=== PATIENT | male | born 1975 | race Caucasian/White ===

== ENCOUNTER → 2017-07-28 13:31 | Outpatient (CLI) | payer MEDICAID, SELFPAY ==
--- NOTE | 2017-07-28 14:00 | CT_ITS ---
STUDY: CT CHEST WITHOUT CONTRAST REASON FOR EXAM: Male, 41 years old. Pleural effusions. Shortness of breath for 6 months. Smoking history. RADIATION DOSAGE (If Supplied By Facility): CTDIvol = ( 16.99 ) mGy, DLP = ( 628.32 ) mGycm TECHNIQUE: Transaxial imaging was performed without the administration of intravenous contrast material. Multiplanar coronal and sagittal images were reformatted. Individualized dose optimization techniques were used for this CT. COMPARISON: Chest, July 18, 2017. FINDINGS: The lungs are normal. There is minimal linear scarring in the right lateral costophrenic phrenic angle. There is mild thickening of the adjacent pleura. There is no evidence of pleural effusions. Normal heart and pericardium. There are calcifications of the coronary arteries. Normal mediastinum. Normal hilar regions. Normal unenhanced pulmonary arteries. Normal aorta arch and descending thoracic aorta. Normal osseous structures. There is no demonstrated abnormality of the visualized upper abdomen. CT/Chest without Contrast IMPRESSION: Minimal thickening of the right pleura with scarring in the lateral costophrenic angle. The study is otherwise unremarkable. Electronically Signed: Ankur Barton DO at 14:21 EST Tel [phone], Service support ,
== END ==
PROVIDERS: Visit Provider Nurse Practitioner Acute Care
DX: J90 Pleural effusion, not elsewhere classified (principal)
CPT/HCPCS: 71250

== ENCOUNTER 2018-05-02 13:15 | Inpatient (IN) | payer MEDICAID, SELFPAY ==
[2018-05-02 13:35] VITALS: BMI 29.2
[2018-05-02] MEDS: hydrOXYzine PAM 25 MG Capsule 50 MG PO ×2 (13:51→21:41)
[2018-05-02] MEDS: cloNIDine HCl 0.1 MG Tablet PO ×3 (13:51→21:42)
[2018-05-02] MEDS: Methocarbamol 750 MG Tablet PO ×2 (13:51→21:42)
[2018-05-02] MEDS: Buprenorphine HCl 2 MG TAB.SUBL SL ×2 (13:52→21:41)
[2018-05-02 14:00] VITALS: BP 176/87; PULSE 81; RESP 18; TEMP 36.8; O2SAT 98
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
[2018-05-02 18:00] VITALS: BP 130/97; PULSE 78; RESP 18; TEMP 36.6
[2018-05-02] MEDS: Pramipexole Di-HCl 0.25 MG Tablet PO (18:02)
[2018-05-02] MEDS: chlordiazePOXIDE 25 MG Capsule 50 MG PO (18:47)
[2018-05-02 20:29] LABS: Amphetamine Urine VISTA NEGATIVE (<1000 ng/mL); Barbiturate Urine VISTA NEGATIVE (< 200 ng/mL); Benzodiazepine Urine VISTA NEGATIVE (< 200 ng/mL); Cocaine Urine VISTA NEGATIVE (< 300 ng/mL); Ecstacy Urine VISTA NEGATIVE (< 500 ng/mL); Methadone Urine VISTA NEGATIVE (< 300 ng/mL); PCP Urine VISTA NEGATIVE (< 25 ng/mL); THC Urine VISTA NEGATIVE (< 50 ng/mL); Vista UDS pH Range 6
[2018-05-02 21:35] VITALS: BP 115/85; PULSE 88; RESP 18; TEMP 36.4
[2018-05-02] MEDS: traZODone 50 MG Tablet PO (21:41)
[2018-05-02] MEDS: Dicyclomine 10 MG Capsule 20 MG PO (21:41)
[2018-05-03] VITALS (7 sets, daily range): BP systolic 94–120; BP diastolic 50–83; PULSE 57–91; RESP 16–18; TEMP 36.2–36.7; O2SAT 97–98
[2018-05-03] MEDS: MELATONIN 10 MG TABLET 5 MG PO (00:26)
[2018-05-03] MEDS: hydrOXYzine PAM 25 MG Capsule 50 MG PO (05:51)
[2018-05-03] MEDS: Methocarbamol 750 MG Tablet PO ×2 (05:51→21:22)
[2018-05-03] MEDS: Buprenorphine HCl 2 MG TAB.SUBL SL ×3 (05:51→21:22)
[2018-05-03 06:57] LABS: Absolute Neutrophil Count 2.6 X10^3/uL (2.0-7.7); Basophil# 0.02 X10^3/uL; Basophil% 0.3 % (0-1); Eosinophils% 1.7 % (0-5); Hematocrit 46.1 % (40-54); Hemoglobin 15.6 g/dl (13.0-16.5); Lymphocyte % 46.2 % (19-41); Mean Corp Hgb Conc 33.8 g/gl (32-36); Mean Corpuscular Hgb 29.2 pg (27.0-32.0); Mean Corpuscular Volume 86.3 fL (80-94); Mean Platelet Vol. 8.8 fl (6.2-12.0); Monocyte# 0.39 X10^3/uL; Monocyte% 6.7 % (0-10); Neutrophil # 2.61 X10^3/uL (2.7-7.7); Neutrophil % 44.8 % (47-70); Platelet Count 353 K/mm3 (150-450); RBC Distribution Width CV 12.8 % (11.6-14.6); RBC Distribution Width SD 39.8 fl (35.1-43.9); Red Blood Count 5.34 M/mm3 (4.6-6.2); White Blood Count 5.8 K/mm3 (4.4-11.0)
[2018-05-03 07:02] LABS: Anion Gap 9 (5-15); BUN 14 mg/dL (7-18); BUN/Creat Ratio 13.2 RATIO (10-20); Calcium,Total 9.4 mg/dL (8.5-10.1); Chloride 102 mmol/L (98-107); Creatinine, Serum 1.06 mg/dL (0.70-1.30); EST Glomerular Filtration Rate 81 mL/min (>60); Est Glom Filt Rate - Afr Amer 97 mL/min (>60); Estimated Creatinine Clearance 94.72 ml/min; Glucose 103 mg/dL (74-106); Potassium 4.2 mmol/L (3.5-5.1); Sodium Level 137 mmol/L (136-145)
[2018-05-03 07:12] LABS: POSITIVE COUNT NO; POSITIVE DIFFERENTIAL NO; POSITIVE MORPHOLOGY NO
--- NOTE | 2018-05-03 08:59 | PN_ITS ---
Patient Problems: Active and Suspected Problems (Last Reviewed 02/21/18 @ 08:48 by Misa Wilkins) Acute opioid withdrawal (Acute) Subjective: Chief complaint: Follow-up after admission for acute opioid withdrawal. Patient seen and examined. No acute events overnight. This morning, he complains of intermittent abdominal cramps and low back pain. He reported headache. He does have history of chronic back pain due to back trauma. His vital signs are stable. - Physical Exam General: Alert, Oriented x3, Cooperative, No apparent distress HEENT: Atraumatic, PERRLA, EOMI, Normocephalic Oral: Moist Mucosa, No Gingival or Mucosal Lesions/ Ulcerations Neck: Supple, No JVD, Trachea Midline, Thyroid Normal Size and Texture Lungs: Clear to auscultation, No rhonchi, No wheeze, No rales, Diminished Cardiovascular: Regular rate, Regular Rhythm, Normal S1, Normal S2, PMI Normal Abdomen: Bowel Sounds Present, Soft, Non Tender, Non-Distended, No Hepato- splenomegaly Extremities: No clubbing, No cyanosis, No edema Skin: No rashes, No breakdown Lymphatic: No Cervical, Supraclavicular, or Inguinal Adenopathy Neurological: Cranial nerves II-XII grossly intact, Motor Exam 5/5 strength throughout Psych/Mental Status: Normal Affect, Appropriate, Alert and oriented to time, place, person, mood and affect Vital Signs Temp Pulse Resp BP Pulse Ox 97.2 F L 57 L 16 94/50 L 98 05/03/18 05:49 05/03/18 05:49 05/03/18 05:49 05/03/18 05:49 05/02/18 14:00 Weight: 209 lb 7.026 oz Body Mass Index (BMI) 29.2 Intake and Output for Last 24 Hours 05/01/18 05/02/18 05/03/18 23:59 23:59 23:59 Intake Total 1350 / 1350 500 / 500 Balance 1350 / 1350 500 / 500 Laboratory Tests Past 24 Hrs 05/02/18 05/03/18 05/03/18 19:00 06:30 06:30 WBC 5.8 RBC 5.34 Hgb 15.6 Hct 46.1 MCV 86.3 MCH 29.2 MCHC 33.8 RDW 12.8 RDW Differential 39.8 Plt Count 353 MPV 8.8 Immature Gran % (Auto) 0.300 Neut % (Auto) 44.8 L Lymph % (Auto) 46.2 H [place] % (Auto) 6.7 Eos % (Auto) 1.7 Baso % (Auto) 0.3 Absolute Neuts (auto) 2.6 Absolute Lymphs (auto) 2.70 Total Counted Not Reportable Sodium 137 Potassium 4.2 Chloride 102 Carbon Dioxide 26.0 Anion Gap 9 BUN 14 Creatinine 1.06 Estim Creat Clear Calc 94.72 Est GFR (MDRD) Af Amer 97 Est GFR (MDRD) Non-Af 81 BUN/Creatinine Ratio 13.2 Glucose 103 Calcium 9.4 Urine Opiates Screen POSITIVE H Urine Methadone Screen NEGATIVE Ur Barbiturates Screen NEGATIVE Ur Phencyclidine Scrn NEGATIVE Ur Amphetamines Screen NEGATIVE U Methamphetamin-MDMA NEGATIVE U Benzodiazepines Scrn NEGATIVE Urine Cocaine Screen NEGATIVE U Cannabinoids Screen NEGATIVE Ur Drug Screen Comment Medical Necessity - Tobacco Use Smoking Status: Current every day smoker Tobacco Use: Cigarettes Assessment/Plan All Active Problems (Last Reviewed 02/21/18 @ 08:48 by Misa Wilkins) Acute opioid withdrawal (Acute) This is a 42 years old male patient presented to the [facility] office requesting admission for medical stabilization due to acute heroin withdrawal. #1 acute opioid withdrawal: Patient has been using heroin, last use was yesterday. He is on [facility] protocol with tapering course of Subutex, as needed Librium, Catapres, Bentyl, Vistaril, methocarbamol, Mirapex and trazodone. He is still symptomatic, minimal improvement. Vital signs are stable. Routine blood work was unremarkable. Urine drug screen was positive for opioids. Plan to continue same treatment. #2 hypertension: Blood pressure stable, continue home medication when home medication list updated. #3 COPD: Clinically stable, pulse ox is maintained on room air. Plan for albuterol as needed. #4 chronic back pain: Start Tylenol extra strength every 8 hours as needed. #5 tobacco abuse: He is on NicoDerm patch. #6 DVT prophylaxis: Low risk patient, no prophylaxis indicated, ambulate. This note was generated with [employer] software. It may contain incorrect words, spelling, and punctuation that were not noted in checking the note before signing. Code Visit Inpatient E&M: 67716 Subs Hosp L2
[2018-05-03] MEDS: Acetaminophen 500 MG Tablet 1000 MG PO (09:44)
[2018-05-03] MEDS: Dicyclomine 10 MG Capsule 20 MG PO ×2 (09:44→21:22)
[2018-05-03] MEDS: tiZANidine HCl 2 MG Tablet 4 MG PO (15:25)
--- NOTE | 2018-05-03 15:33 | CHAPLAIN ---
Type of Pastoral Visit _x__ Initial Visit ___ Follow-up Visit ___ On-call Visit ___ General Patient Visit ___ Spiritual Assessment ___ Family Conference ___ Bereavement ___ Rapid Response ___ Code Blue ___ Other (describe below) Pastoral Care Referral From _x__ Patient ___ Family ___ Nurse ___ Physician ___ Principal Librarian ___ Lieutenant Fire Fighter ___ Other (describe below) Sacrament/Intervention _x__ Active listening ___ Anointing ___ Restorationist ___ Bereavement ___ Communion _x__ Sadia exploration ___ _x__ Life review _x__ Prayer ___ Reconciliation ___ Sacrament of Sick _x__ Supportive presence ___ Wedding ___ Other (describe below) Pastoral Comments patient offered spiritual and emotional support and 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
[2018-05-03] MEDS: cloNIDine HCl 0.1 MG Tablet PO (21:22)
[2018-05-03] MEDS: Pramipexole Di-HCl 0.25 MG Tablet PO (21:22)
[2018-05-03] MEDS: QUEtiapine 25 MG Tablet 50 MG PO (21:23)
[2018-05-03] MEDS: traZODone 50 MG Tablet PO (21:29)
[2018-05-04 06:17] VITALS: BP 118/78; PULSE 88; RESP 18; TEMP 36.8
[2018-05-04] MEDS: cloNIDine HCl 0.1 MG Tablet PO (06:19)
[2018-05-04] MEDS: Buprenorphine HCl 2 MG TAB.SUBL SL ×2 (06:19→18:00)
[2018-05-04] MEDS: hydrOXYzine PAM 25 MG Capsule 50 MG PO ×2 (06:19→14:36)
[2018-05-04] MEDS: Methocarbamol 750 MG Tablet PO ×3 (06:19→21:46)
[2018-05-04] MEDS: Dicyclomine 10 MG Capsule 20 MG PO ×3 (06:19→21:47)
--- NOTE | 2018-05-04 08:41 | PCM.PROGNOTE ---
Patient Problems: Active and Suspected Problems (Last Updated 05/03/18 @ 09:00 by Devyn Hamm MD) Acute opioid withdrawal (Acute) Subjective: Chief complaint: Follow-up after admission for acute opioid withdrawal for medical stabilization. Patient seen and examined. No acute events overnight. Today, he reported mild improvement of his symptoms, having less abdominal cramps. Denied nausea vomiting. He was able to sleep last night. His vital signs are stable. - Physical Exam General: Alert, Oriented x3, Cooperative, No apparent distress HEENT: Atraumatic, PERRLA, EOMI, Normocephalic Oral: Moist Mucosa, No Gingival or Mucosal Lesions/ Ulcerations Neck: Supple, No JVD, Negative Carotid Bruits, Trachea Midline, Thyroid Normal Size and Texture Lungs: Clear to auscultation, Normal air movement, No rhonchi, No wheeze, No rales Cardiovascular: Regular rate, Regular Rhythm, Normal S1, Normal S2, PMI Normal Abdomen: Bowel Sounds Present, Soft, Non Tender, Non-Distended, No Hepato-splenomegaly Extremities: No clubbing, No cyanosis, No edema Skin: No rashes, No breakdown Lymphatic: No Cervical, Supraclavicular, or Inguinal Adenopathy Neurological: Cranial nerves II-XII grossly intact, Neuro grossly intact Psych/Mental Status: Normal Affect, Appropriate, Alert and oriented to time, place, person, mood and affect Vital Signs Temp Pulse Resp BP Pulse Ox 98.3 F 88 18 118/78 98 05/04/18 06:17 05/04/18 06:17 05/04/18 06:17 05/04/18 06:17 05/03/18 21:08 Oxygen Delivery Method Room Air Weight: 209 lb 7.026 oz Body Mass Index (BMI) 29.2 Intake and Output for Last 24 Hours 05/02/18 05/03/18 05/04/18 23:59 23:59 23:59 Intake Total 1350 / 1350 860 / 860 360 / 360 Balance 1350 / 1350 860 / 860 360 / 360 Medical Necessity - Tobacco Use Smoking Status: Current every day smoker Tobacco Use: Cigarettes Assessment/Plan All Active Problems (Last Updated 05/03/18 @ 09:00 by Devyn Hamm MD) Acute opioid withdrawal (Acute) This is a 42 years old male patient presented to the [facility] office requesting admission for medical stabilization due to acute heroin withdrawal. #1 acute opioid withdrawal: Remained on [facility] protocol with tapering course of Subutex, as needed Librium, Catapres, Bentyl, Vistaril, methocarbamol, Mirapex and trazodone. He reported mild improvement of his symptoms. Vital signs are stable. Routine blood work was unremarkable. Urine drug screen was positive for opioids. Plan to continue same treatment. #2 hypertension: Blood pressure stable, continue Norvasc and lisinopril. #3 COPD: Clinically stable, pulse ox is maintained on room air. Continue albuterol as needed. #4 chronic back pain: Stable, continue Tylenol extra strength every 8 hours as needed. #5 tobacco abuse: He is on NicoDerm patch. #6 DVT prophylaxis: Low risk patient, no prophylaxis indicated, ambulate. This note was generated with [employer] dictation software. It may contain incorrect words, spelling, and punctuation that were not noted in checking the note before signing. Code Visit Inpatient E&M: 26365 Subs Hosp L2
[2018-05-04 10:39] VITALS: BP 93/60; PULSE 61; RESP 16; TEMP 36.7
[2018-05-04] MEDS: Pramipexole Di-HCl 0.25 MG Tablet PO (10:50)
[2018-05-04] MEDS: chlordiazePOXIDE 25 MG Capsule 50 MG PO ×2 (10:50→18:09)
[2018-05-04] MEDS: Venlafaxine XR 75 MG Capsule PO (10:50)
[2018-05-04] MEDS: tiZANidine HCl 2 MG Tablet 4 MG PO (10:51)
[2018-05-04 14:30] VITALS: BP 93/59; PULSE 57; RESP 16; TEMP 36.6
[2018-05-04] MEDS: Acetaminophen 500 MG Tablet 1000 MG PO (14:36)
[2018-05-04 18:11] VITALS: BP 104/76; PULSE 62; RESP 16; TEMP 36.7
[2018-05-04 21:33] VITALS: BP 137/77; PULSE 70; RESP 18; TEMP 36.4
[2018-05-04] MEDS: QUEtiapine 25 MG Tablet 50 MG PO (21:43)
[2018-05-04] MEDS: traZODone 50 MG Tablet PO (21:43)
[2018-05-05] MEDS: Buprenorphine HCl 2 MG TAB.SUBL SL (05:27)
[2018-05-05] MEDS: hydrOXYzine PAM 25 MG Capsule 50 MG PO (05:27)
[2018-05-05 05:34] VITALS: BP 131/77; PULSE 77; RESP 18; TEMP 36.6
--- NOTE | 2018-05-05 05:36 | NURSING ---
GIRLFRIEND SLEEPING IN BED WITH PT.
[2018-05-05 08:47] VITALS: BP 114/82; PULSE 64; RESP 18; TEMP 36.7; O2SAT 95
--- NOTE | 2018-05-05 08:47 | DCINST_ITS ---
- Discharge Diagnoses Current Active Problems: Current Active and Chronic Problems (Last Updated 05/03/18 @ 09:00 by Devyn Hamm MD) Acute opioid withdrawal (Acute) You will use the following diet at home:: Cardiac Your food should be the consistency of: Regular Discharge Activity: Return to Normal Activity Weight Bearing Status: Full weight bearing Call your doctor if you observe: Fever of 101 or Higher, Shortness of breath, Dizziness, Fainting spells, Chest pain, Increased palpitations (irregular heartbeat), Uncontrolled pain Allergies/Adverse Reactions: Allergies tramadol Allergy (Intermediate, Verified 08/24/17 09:29) Unknown acetaminophen [From Vicodin] Allergy (Verified 08/24/17 09:29) Swelling hydrocodone [From Vicodin] Allergy (Verified 08/24/17 09:29) Swelling Medications to take at Discharge naltrexone ER 380 mg intramuscular suspension,extended release 380 mg IM QMONTH 07/08/17 albuterol sulfate HFA 90 mcg/actuation aerosol inhaler 2 puff INHALATION Q4H PRN #1 device 07/13/17 amoxicillin 875 mg-potassium clavulanate 125 mg tablet 1 tab PO BID #20 tab 08/24/17 Meloxicam 7.5 mg PO QDAY 05/03/18 Nicotine [Nicoderm Cq] 21 mg TRANSDERM. DAILY 05/03/18 Tizanidine HCl [Zanaflex] 4 mg PO TID PRN PRN 05/03/18 Amlodipine Besylate [Norvasc] 5 mg PO QDAY #30 tablet 05/05/18 Lisinopril 20 mg PO DAILY #30 tablet 05/05/18 Quetiapine Fumarate [Seroquel] 50 mg PO QHS #30 tablet 05/05/18 Venlafaxine XR [Effexor Xr] 75 mg PO DAILY #30 capsule 05/05/18 The following prescriptions were given: Amlodipine Besylate [Norvasc] 5 mg PO QDAY #30 tablet Lisinopril 20 mg PO DAILY #30 tablet Quetiapine Fumarate [Seroquel] 50 mg PO QHS #30 tablet Venlafaxine XR [Effexor Xr] 75 mg PO DAILY #30 capsule Primary Care Physician: Care Physician,No Primary [Primary Care Provider] - Please follow up with your Primary Care Physician in: 1-2 weeks. Test Results: Test results from this visit will be discussed in further detail at your follow- up appointment, if applicable.
[2018-05-05] MEDS: amLODIPine 5 MG Tablet PO (09:34)
[2018-05-05] MEDS: Lisinopril 20 MG Tablet PO (09:34)
[2018-05-05] MEDS: Venlafaxine XR 75 MG Capsule PO (09:34)
--- NOTE | 2018-05-05 13:06 | PCM.DC.SUM ---
Discharge Date and Diagnosis - Problem List Patient Problems: Active and Suspected Problems (Last Updated 05/03/18 @ 09:00 by Devyn Hamm MD) Acute opioid withdrawal (Acute) Date of Admission: 05/02/18 Date of Discharge: 05/05/18 - Primary Discharge Diagnosis Active and Suspected Problems (Last Updated 05/03/18 @ 09:00 by Devyn Hamm MD) Acute opioid withdrawal admitted for medical stabilization (Acute) - Secondary Discharge Diagnosis Chronic Problems (Last Updated 05/03/18 @ 09:00 by Devyn Hamm MD) Tobacco dependency (Chronic) Restrictive airway disease (Chronic) Chronic bronchitis (Chronic) HTN (hypertension) (Chronic) Back pain (Chronic) Tobacco use (Chronic) Polysubstance abuse (Chronic) Hospital Course and Treatment Operations: None Procedures: None Summary of Care Provided: The patient is a 42 year old M presented to the [facility] office requesting admission for medical stabilization due to acute opioid withdrawal. Patient has been using IV heroin as well as snorting heroin after he relapsed at 7 months ago. He was clean for about 18 months. His main presenting symptoms are restlessness, and anxiety, abdominal cramps and mild diarrhea. He was admitted to the floor, started on [facility] protocol with tapering course of Subutex, as needed Librium, Catapres, Bentyl, Vistaril, methocarbamol, Mirapex and trazodone. His vital signs were stable throughout admission. His routine blood work was unremarkable. His urine drug screen was positive for opioids. With the above-mentioned treatment, patient symptoms improved. He does have a history of hypertension COPD and he was continued on his home medications and his blood pressure has been stable throughout admission. Patient discharged home in a stable medical condition, prescription given for Norvasc, lisinopril, Seroquel and Effexor, recommended follow-up with PCP in 1 week, follow-up with [facility] as directed. Patient Problems: Active and Suspected Problems (Last Updated 05/03/18 @ 09:00 by Devyn Hamm MD) Acute opioid withdrawal (Acute) - Physical Exam General: Alert, Oriented x3, Cooperative, No apparent distress HEENT: PERRLA, EOMI, Normocephalic Oral: Moist Mucosa, No Gingival or Mucosal Lesions/ Ulcerations Neck: Supple, No JVD, Negative Carotid Bruits, Thyroid Normal Size and Texture Lungs: Clear to auscultation, Normal air movement, No rhonchi, No wheeze, No rales Cardiovascular: Regular rate, Regular Rhythm, Normal S1, Normal S2 Abdomen: Bowel Sounds Present, Soft, Non Tender, Non-Distended, No Hepato-splenomegaly Extremities: No clubbing, No cyanosis, No edema Skin: No rashes, No breakdown Lymphatic: No Cervical, Supraclavicular, or Inguinal Adenopathy Neurological: Cranial nerves II-XII grossly intact, Motor Exam 5/5 strength throughout Psych/Mental Status: Normal Affect, Appropriate Vital Signs Temp Pulse Resp BP Pulse Ox 98.0 F 64 18 114/82 H 95 05/05/18 08:47 05/05/18 08:47 05/05/18 08:47 05/05/18 08:47 05/05/18 08:47 Oxygen Delivery Method Room Air Weight: 209 lb 7.026 oz Body Mass Index (BMI) 29.2 Intake and Output for Last 24 Hours 05/03/18 05/04/18 05/05/18 23:59 23:59 23:59 Intake Total 860 / 860 360 / 360 Balance 860 / 860 360 / 360 Discharge Activity: Return to Normal Activity Weight Bearing Status: Full weight bearing Call your doctor if you observe: Fever of 101 or Higher, Shortness of breath, Dizziness, Fainting spells, Chest pain, Increased palpitations (irregular heartbeat), Uncontrolled pain Home Medications: Medications to take at Discharge naltrexone ER 380 mg intramuscular suspension,extended release 380 mg IM QMONTH 07/08/17 albuterol sulfate HFA 90 mcg/actuation aerosol inhaler 2 puff INHALATION Q4H PRN #1 device 07/13/17 amoxicillin 875 mg-potassium clavulanate 125 mg tablet 1 tab PO BID #20 tab 08/24/17 Meloxicam 7.5 mg PO QDAY 05/03/18 Nicotine [Nicoderm Cq] 21 mg TRANSDERM. DAILY 05/03/18 Tizanidine HCl [Zanaflex] 4 mg PO TID PRN PRN 05/03/18 Amlodipine Besylate [Norvasc] 5 mg PO QDAY #30 tablet 05/05/18 Lisinopril 20 mg PO DAILY #30 tablet 05/05/18 Quetiapine Fumarate [Seroquel] 50 mg PO QHS #30 tablet 05/05/18 Venlafaxine XR [Effexor Xr] 75 mg PO DAILY #30 capsule 05/05/18 Following Prescrptions Were Given to Patient: Amlodipine Besylate [Norvasc] 5 mg PO QDAY #30 tablet Lisinopril 20 mg PO DAILY #30 tablet Quetiapine Fumarate [Seroquel] 50 mg PO QHS #30 tablet Venlafaxine XR [Effexor Xr] 75 mg PO DAILY #30 capsule Primary Care Physician: Care Physician,No Primary [Primary Care Provider] - Please follow up with your Primary Care Physician in: 1-2 weeks. Medical Necessity - Tobacco Use Smoking Status: Current every day smoker Tobacco Use: Cigarettes Meaningful Use Info Meaningful Use Diagnoses (Choose all that apply): None applicable Code Visit Inpatient E&M: 35495 Disch Hosp
== END 2018-05-05 10:07 | disposition home or self-care (01) | DRG 773 ==
LOC: MS2 05-03 07:09 → MS3 05-04 13:59
PROVIDERS: Admitting Provider Family Medicine; Referring Provider Family Medicine; Visit Provider Hospitalist
DX: F11.23 Opioid dependence with withdrawal (principal); J44.9 Chronic obstructive pulmonary disease, unspecified; F17.210 Nicotine dependence, cigarettes, uncomplicated; I10 Essential (primary) hypertension; G89.29 Other chronic pain; M54.9 Dorsalgia, unspecified
CPT/HCPCS: 36415; 80048; 80307; 85025; 97802

== ENCOUNTER 2018-07-13 12:01 | Inpatient (IN) | payer MEDICAID, SELFPAY ==
[2018-05-02 13:35] VITALS: BMI 29.2
[2018-07-13 12:19] VITALS: BMI 28.8
[2018-07-13 12:20] VITALS: BMI 28.9
[2018-07-13 12:23] VITALS: BP 157/97; PULSE 60; RESP 18; TEMP 36.4; O2SAT 99
[2018-07-13] MEDS: cloNIDine HCl 0.1 MG Tablet PO ×2 (12:47→17:56)
[2018-07-13] MEDS: Dicyclomine 10 MG Capsule 20 MG PO (12:47)
[2018-07-13] MEDS: hydrOXYzine PAM 25 MG Capsule 50 MG PO (12:48)
--- NOTE | 2018-07-13 13:16 | PCM.HP.STD ---
Problem List (1) Acute opioid withdrawal Status: Acute (2) Tobacco dependency Status: Chronic (3) HTN (hypertension) Status: Chronic Qualifiers: (4) Back pain Status: Chronic Qualifiers: (5) Polysubstance abuse Status: Chronic History of Present Illness Date of Admission: 07/13/18 Chief Complaint: Acute opioid withdrawal. The patient is a 42 year old M with past medical history as mentioned above presented to the [facility] office requesting admission for medical stabilization due to acute opiate withdrawal. Patient was admitted at the end of April, for acute opiate withdrawal, was treated and was discharged and according to him, he was clean for about a month. He started back snorting heroin since beginning of June, every day and last use was 2 days ago. He stopped snorting heroin this time aiming to quit. His symptoms are restlessness, anxiety, cold skin, runny nose and abdominal cramps. He denied use of any IV drugs. He had a history of hypertension and he has been on lisinopril and Norvasc and his blood pressure has been stable. He had a history of COPD and he has been only on albuterol as needed which seems to be effective. He has a history of polysubstance abuse with recent admission for acute opioid withdrawal on April, but he relapsed 1 month later. At this time, his vital signs are stable. His routine blood work from the last admission on May 03, 2018 and he reviewed and was unremarkable. There is no indication to repeat routine blood work. Past Medical History Past Medical History (Chronic Problems): Chronic Problems (Last Updated 05/03/18 @ 09:00 by Devyn Hamm MD) Tobacco dependency (Chronic) Restrictive airway disease (Chronic) Chronic bronchitis (Chronic) HTN (hypertension) (Chronic) Back pain (Chronic) Tobacco use (Chronic) Polysubstance abuse (Chronic) Medical History: Medical History (Last Updated 05/03/18 @ 09:00 by Devyn Hamm MD) Tobacco dependency (Chronic) F17.200 Restrictive airway disease (Chronic) J98.4 Chronic bronchitis (Chronic) J42 HTN (hypertension) (Chronic) I10 Back pain (Chronic) M54.9 Tobacco use (Chronic) Z72.0 Polysubstance abuse (Chronic) F19.10 Allergies tramadol Allergy (Intermediate, Verified 08/24/17 09:29) Unknown acetaminophen [From Vicodin] Allergy (Verified 08/24/17 09:29) Swelling hydrocodone [From Vicodin] Allergy (Verified 08/24/17 09:29) Swelling Home Medications: Ambulatory Orders Medication Instructions Recorded albuterol sulfate HFA 90 2 puff INHALATION Q4H PRN #1 device 07/13/17 mcg/actuation aerosol inhaler Amlodipine Besylate [Norvasc] 5 mg PO QDAY #30 tablet 05/05/18 Lisinopril 20 mg PO DAILY #30 tablet 05/05/18 Quetiapine Fumarate [Seroquel] 50 mg PO QHS #30 tablet 05/05/18 Surgical History: - - Bowel resecton s/p trauma to abd. Psychiatric History: No pertinent psych hx Lives: With Family Smoking Status: Current every day smoker Tobacco Use: Cigarettes Alcohol: None Drugs: Heroin - *Family History Maternal Family History: Family History (Last Reviewed 02/21/18 @ 08:48 by Misa Wilkins) Mother Hypertension Diabetes COPD (chronic obstructive pulmonary disease) Aunt Cancer History Items: Diabetes, Heart Disease Paternal Family History: Family History (Last Reviewed 02/21/18 @ 08:48 by Misa Wilkins) Mother Hypertension Diabetes COPD (chronic obstructive pulmonary disease) Aunt Cancer History Items: Diabetes, Heart Disease Review of Systems Constitutional: Reports: Anorexia, Malaise. Denies: Chills, Fever, Weakness Eyes: Denies: Blurred vision, Double vision, Drainage, Redness HEENT: Denies: Difficulty Hearing, Ear Pain, Eye Pain, Nasal Congestion, Sore Throat Cardiovascular: Denies: Chest Pain, Chest Pressure, Edema, Heaviness, Palpitations, Syncope Respiratory: Denies: Cough, Pleuritic Pain, Shortness of Breath, Sputum production, Wheezing Gastrointestinal: Reports: Nausea, - - Abdominal cramps.. Denies: Abdominal Pain, Constipation, Diarrhea, Vomiting Genitourinary: Denies: Dysuria, Frequency, Hematuria Musculoskeletal: Denies: Arm Pain, Back Pain, Foot Pain Skin: Denies: Dryness, Rash Neurological: Denies: Balance problems, Double vision, Slurred speech, Confusion, Headaches, Incoordination, Numbness Psychiatric: Denies: Anxiety, Depression Endocrine: Denies: Change in Body Habitus, Polydipsia VTE Information - Inpt Only VTE Present on Admission: No VTE Mechan Device Prophylaxis: None VTE Pharm Prophylaxis ordered?: No - Physical Exam General: Alert, Oriented x3, Cooperative, No apparent distress HEENT: Atraumatic, PERRLA, EOMI, Normocephalic Oral: Moist Mucosa, No Gingival or Mucosal Lesions/ Ulcerations Neck: Supple, No JVD, Negative Carotid Bruits, Trachea Midline, Thyroid Normal Size and Texture Lungs: Clear to auscultation, Normal air movement, No rhonchi, No wheeze, No rales Cardiovascular: Regular rate, Regular Rhythm, Normal S1, Normal S2, No murmurs Abdomen: Bowel Sounds Present, Soft, Non Tender, Non-Distended, No Hepato-splenomegaly Extremities: No clubbing, No cyanosis, No edema Skin: No rashes, No breakdown Lymphatic: No Cervical, Supraclavicular, or Inguinal Adenopathy Neurological: Cranial nerves II-XII grossly intact, Motor Exam 5/5 strength throughout Psych/Mental Status: Normal Affect, Appropriate, Alert and oriented to time, place, person, mood and affect Vital Signs Temp Pulse Resp BP Pulse Ox 97.6 F L 60 18 157/97 H 99 07/13/18 12:23 07/13/18 12:23 07/13/18 12:23 07/13/18 12:23 07/13/18 12:23 Oxygen Delivery Method Room Air Weight: 206 lb 14.4 oz Body Mass Index (BMI) 28.8 Laboratory Tests Past 24 Hrs 07/13/18 12:35 Ethyl Alcohol Pending Assessment/Plan All Active Problems (Last Updated 05/03/18 @ 09:00 by Devyn Hamm MD) Acute opioid withdrawal (Acute) This is a 42 years old male patient presented to the [facility] office requesting admission for medical stabilization due to acute heroin withdrawal. #1 acute opioid withdrawal: Patient was admitted on April, for the same problem, treated and was discharged but he relapsed 1 month later. He has been snorting heroin since beginning of June, last use was 2 days ago. His vital signs are stable. Plan: Admit to [facility] floor, blood alcohol level, urine drug screen, start [facility] protocol with tapering course of Subutex, as needed Librium, Catapres, Bentyl, Vistaril, methocarbamol, Mirapex and trazodone. #2 hypertension: Blood pressure stable, continue home lisinopril and Norvasc. #3 COPD: Clinically stable, pulse ox is maintained on room air. Plan for albuterol as needed. #4 chronic back pain: Tylenol extra strength every 8 hours as needed. #5 tobacco abuse: Start NicoDerm patch. #6 DVT prophylaxis: Low risk patient, no prophylaxis indicated, ambulate. This note was generated with [employer] dictation software. It may contain incorrect words, spelling, and punctuation that were not noted in checking the note before signing. Code Visit Inpatient E&M: 51998 Init Hosp L2
--- NOTE | 2018-07-13 13:20 | HP.PCM_ITS ---
Problem List (1) Acute opioid withdrawal Status: Acute (2) Tobacco dependency Status: Chronic (3) HTN (hypertension) Status: Chronic Qualifiers: (4) Back pain Status: Chronic Qualifiers: (5) Polysubstance abuse Status: Chronic History of Present Illness Date of Admission: 07/13/18 Chief Complaint: Acute opioid withdrawal. The patient is a 42 year old M with past medical history as mentioned above presented to the [facility] office requesting admission for medical stabilization due to acute opiate withdrawal. Patient was admitted at the end of April, for acute opiate withdrawal, was treated and was discharged and according to him, he was clean for about a month. He started back snorting heroin since beginning of June, every day and last use was 2 days ago. He stopped snorting heroin this time aiming to quit. His symptoms are rest lessness, anxiety, cold skin, runny nose and abdominal cramps. He denied use of any IV drugs. He had a history of hypertension and he has been on lisinopril and Norvasc and his blood pressure has been stable. He had a history of COPD and he has been only on albuterol as needed which seems to be effective. He has a history of polysubstance abuse with recent admission for acute opioid withdrawal on April, but he relapsed 1 month later. At this time, his vital signs are stable. His routine blood work from the last admission on May 03, 2018 and he reviewed and was unremarkable. There is no indication to repeat routine blood work. Past Medical History Past Medical History (Chronic Problems): Chronic Problems (Last Updated 05/03/18 @ 09:00 by Devyn Hamm MD) Tobacco dependency (Chronic) Restrictive airway disease (Chronic) Chronic bronchitis (Chronic) HTN (hypertension) (Chronic) Back pain (Chronic) Tobacco use (Chronic) Polysubstance abuse (Chronic) Medical History: Medical History (Last Updated 05/03/18 @ 09:00 by Devyn Hamm MD) Tobacco dependency (Chronic) F17.200 Restrictive airway disease (Chronic) J98.4 Chronic bronchitis (Chronic) J42 HTN (hypertension) (Chronic) I10 Back pain (Chronic) M54.9 Tobacco use (Chronic) Z72.0 Polysubstance abuse (Chronic) F19.10 Allergies tramadol Allergy (Intermediate, Verified 08/24/17 09:29) Unknown acetaminophen [From Vicodin] Allergy (Verified 08/24/17 09:29) Swelling hydrocodone [From Vicodin] Allergy (Verified 08/24/17 09:29) Swelling Home Medications: Ambulatory Orders Medication Instructions Recorded albuterol sulfate HFA 90 2 puff INHALATION Q4H PRN #1 device 07/13/17 mcg/actuation aerosol inhaler Amlodipine Besylate [Norvasc] 5 mg PO QDAY #30 tablet 05/05/18 Lisinopril 20 mg PO DAILY #30 tablet 05/05/18 Quetiapine Fumarate [Seroquel] 50 mg PO QHS #30 tablet 05/05/18 Surgical History: - - Bowel resecton s/p trauma to abd. Psychiatric History: No pertinent psych hx Lives: With Family Smoking Status: Current every day smoker Tobacco Use: Cigarettes Alcohol: None Drugs: Heroin - *Family History Maternal Family History: Family History (Last Reviewed 02/21/18 @ 08:48 by Misa Wilkins) Mother Hypertension Diabetes COPD (chronic obstructive pulmonary disease) Aunt Cancer History Items: Diabetes, Heart Disease Paternal Family History: Family History (Last Reviewed 02/21/18 @ 08:48 by Misa Wilkins) Mother Hypertension Diabetes COPD (chronic obstructive pulmonary disease) Aunt Cancer History Items: Diabetes, Heart Disease Review of Systems Constitutional: Reports: Anorexia, Malaise. Denies: Chills, Fever, Weakness Eyes: Denies: Blurred vision, Double vision, Drainage, Redness HEENT: Denies: Difficulty Hearing, Ear Pain, Eye Pain, Nasal Congestion, Sore Throat Cardiovascular: Denies: Chest Pain, Chest Pressure, Edema, Heaviness, P alpitations, Syncope Respiratory: Denies: Cough, Pleuritic Pain, Shortness of Breath, Sputum production, Wheezing Gastrointestinal: Reports: Nausea, - - Abdominal cramps.. Denies: Abdominal Pain, Constipation, Diarrhea, Vomiting Genitourinary: Denies: Dysuria, Frequency, Hematuria Musculoskeletal: Denies: Arm Pain, Back Pain, Foot Pain Skin: Denies: Dryness, Rash Neurological: Denies: Balance problems, Double vision, Slurred speech, Confusion, Headaches, Incoordination, Numbness Psychiatric: Denies: Anxiety, Depression Endocrine: Denies: Change in Body Habitus, Polydipsia VTE Information - Inpt Only VTE Present on Admission: No VTE Mechan Device Prophylaxis: None VTE Pharm Prophylaxis ordered?: No - Physical Exam General: Alert, Oriented x3, Cooperative, No apparent distress HEENT: Atraumatic, PERRLA, EOMI, Normocephalic Oral: Moist Mucosa, No Gingival or Mucosal Lesions/ Ulcerations Neck: Supple, No JVD, Negative Carotid Bruits, Trachea Midline, Thyroid Normal Size and Texture Lungs: Clear to auscultation, Normal air movement, No rhonchi, No wheeze, No rales Cardiovascular: Regular rate, Regular Rhythm, Normal S1, Normal S2, No murmurs Abdomen: Bowel Sounds Present, Soft, Non Tender, Non-Distended, No Hepato- splenomegaly Extremities: No clubbing, No cyanosis, No edema Skin: No rashes, No breakdown Lymphatic: No Cervical, Supraclavicular, or Inguinal Adenopathy Neurological: Cranial nerves II-XII grossly intact, Motor Exam 5/5 strength throughout Psych/Mental Status: Normal Affect, Appropriate, Alert and oriented to time, place, person, mood and affect Vital Signs Temp Pulse Resp BP Pulse Ox 97.6 F L 60 18 157/97 H 99 07/13/18 12:23 07/13/18 12:23 07/13/18 12:23 07/13/18 12:23 07/13/18 12:23 Oxygen Delivery Method Room Air Weight: 206 lb 14.4 oz Body Mass Index (BMI) 28.8 Laboratory Tests Past 24 Hrs 07/13/18 12:35 Ethyl Alcohol Pending Assessment/Plan All Active Problems (Last Updated 05/03/18 @ 09:00 by Devyn Hamm MD) Acute opioid withdrawal (Acute) This is a 42 years old male patient presented to the [facility] office requesting admission for medical stabilization due to acute heroin withdrawal. #1 acute opioid withdrawal: Patient was admitted on April, for the same problem, treated and was discharged but he relapsed 1 month later. He has been snorting heroin since beginning of June, last use was 2 days ago. His vital signs are stable. Plan: Admit to [facility] floor, blood alcohol level, urine drug screen, start [facility] protocol with tapering course of Subutex, as needed Librium, Catapres, Bentyl, Vistaril, methocarbamol, Mirapex and trazodone. #2 hypertension: Blood pressure stable, continue home lisinopril and Norvasc. #3 COPD: Clinically stable, pulse ox is maintained on room air. Plan for albuterol as needed. #4 chronic back pain: Tylenol extra strength every 8 hours as needed. #5 tobacco abuse: Start NicoDerm patch. #6 DVT prophylaxis: Low risk patient, no prophylaxis indicated, ambulate. This note was generated with [employer] dictation software. It may contain incorrect words, spelling, and punctuation that were not noted in checking the note before signing. Code Visit Inpatient E&M: 81038 Init Hosp L2
[2018-07-13 14:00] VITALS: BP 145/80; PULSE 70; RESP 18; TEMP 36.6
[2018-07-13] MEDS: Buprenorphine HCl 2 MG TAB.SUBL SL ×2 (15:03→23:02)
[2018-07-13] MEDS: Lisinopril 20 MG Tablet PO (15:04)
[2018-07-13] MEDS: amLODIPine 5 MG Tablet PO (15:04)
[2018-07-13] MEDS: Pramipexole Di-HCl 0.25 MG Tablet PO (15:13)
[2018-07-13] MEDS: Methocarbamol 750 MG Tablet PO ×2 (15:13→23:05)
[2018-07-13 15:35] LABS: Amphetamine Urine VISTA NEGATIVE (<1000 ng/mL); Barbiturate Urine VISTA NEGATIVE (< 200 ng/mL); Benzodiazepine Urine VISTA NEGATIVE (< 200 ng/mL); Cocaine Urine VISTA NEGATIVE (< 300 ng/mL); Ecstacy Urine VISTA NEGATIVE (< 500 ng/mL); Methadone Urine VISTA NEGATIVE (< 300 ng/mL); PCP Urine VISTA NEGATIVE (< 25 ng/mL); THC Urine VISTA NEGATIVE (< 50 ng/mL); Vista UDS pH Range 7
[2018-07-13 17:48] VITALS: BP 138/82; PULSE 69; RESP 18; TEMP 37.1
[2018-07-13] MEDS: Ibuprofen 400 MG Tablet PO (17:55)
[2018-07-13] MEDS: Ondansetron ODT 4 MG Tablet PO (17:55)
[2018-07-13 22:54] VITALS: BP 122/85; PULSE 62; RESP 14; TEMP 36.4; O2SAT 97
[2018-07-13] MEDS: QUEtiapine 25 MG Tablet 50 MG PO (23:02)
[2018-07-14 05:40] VITALS: BP 103/69; PULSE 55; RESP 14; TEMP 36.6; O2SAT 97
[2018-07-14] MEDS: Buprenorphine HCl 2 MG TAB.SUBL SL ×3 (05:46→21:35)
--- NOTE | 2018-07-14 08:35 | PCM.PROGNOTE ---
Subjective: Chief complaint: Follow-up after admission for acute opioid withdrawal. Patient seen and examined. No acute events overnight. This morning, he reported minimal improvement of his symptoms. Still having intermittent body aches, restlessness and cold skin. He was able to sleep last night. His vital signs are stable. - Physical Exam General: Alert, Oriented x3, Cooperative, No apparent distress HEENT: Atraumatic, PERRLA, EOMI, Normocephalic Oral: Moist Mucosa, No Gingival or Mucosal Lesions/ Ulcerations Neck: Supple, No JVD, Negative Carotid Bruits, Trachea Midline, Thyroid Normal Size and Texture Lungs: Clear to auscultation, Normal air movement, No rhonchi, No wheeze, No rales Cardiovascular: Regular rate, Regular Rhythm, Normal S1, Normal S2, PMI Normal Abdomen: Bowel Sounds Present, Soft, Non Tender, Non-Distended, No Hepato-splenomegaly Extremities: No clubbing, No cyanosis, No edema Skin: No rashes, No breakdown Lymphatic: No Cervical, Supraclavicular, or Inguinal Adenopathy Neurological: Cranial nerves II-XII grossly intact, Neuro grossly intact Psych/Mental Status: Normal Affect, Appropriate, Alert and oriented to time, place, person, mood and affect Vital Signs Temp Pulse Resp BP Pulse Ox 97.9 F 55 L 14 103/69 97 07/14/18 05:40 07/14/18 05:40 07/14/18 05:40 07/14/18 05:40 07/14/18 05:40 Oxygen Delivery Method Room Air Weight: 206 lb 14.4 oz Body Mass Index (BMI) 28.8 Intake and Output for Last 24 Hours 07/12/18 07/13/18 07/14/18 23:59 23:59 23:59 Intake Total 300 / 300 Balance 300 / 300 Laboratory Tests Past 24 Hrs 07/13/18 07/13/18 12:35 14:30 Urine Opiates Screen NEGATIVE Urine Methadone Screen NEGATIVE Ur Barbiturates Screen NEGATIVE Ur Phencyclidine Scrn NEGATIVE Ur Amphetamines Screen NEGATIVE U Methamphetamin-MDMA NEGATIVE U Benzodiazepines Scrn NEGATIVE Urine Cocaine Screen NEGATIVE U Cannabinoids Screen NEGATIVE Ur Drug Screen Comment Ethyl Alcohol 3.0 Medical Necessity - Tobacco Use Smoking Status: Current every day smoker Tobacco Use: Cigarettes Assessment/Plan All Active Problems (Last Updated 05/03/18 @ 09:00 by Devyn Hamm MD) Acute opioid withdrawal (Acute) This is a 42 years old male patient presented to the [facility] office requesting admission for medical stabilization due to acute heroin withdrawal. #1 acute opioid withdrawal: He is on [facility] protocol with tapering course of Subutex, as needed Librium, Catapres, Bentyl, Vistaril, methocarbamol, Mirapex and trazodone. His urine drug screen was negative. Blood alcohol level was 3. His vital signs are stable. Today, he started feeling some improvement. Plan to continue same treatment. #2 hypertension: Blood pressure stable, continue home lisinopril and Norvasc. #3 COPD: Clinically stable, pulse ox is maintained on room air. Continue albuterol as needed. #4 chronic back pain: Tylenol extra strength every 8 hours as needed. #5 tobacco abuse: Continue NicoDerm patch. #6 DVT prophylaxis: Low risk patient, no prophylaxis indicated, ambulate. This note was generated with [employer] dictation software. It may contain incorrect words, spelling, and punctuation that were not noted in checking the note before signing. Code Visit Inpatient E&M: 84608 Subs Hosp L2
[2018-07-14 10:55] VITALS: BP 136/85; PULSE 61; RESP 16; TEMP 36.5
[2018-07-14] MEDS: amLODIPine 5 MG Tablet PO (11:09)
[2018-07-14] MEDS: Lisinopril 20 MG Tablet PO (11:09)
[2018-07-14] MEDS: Pramipexole Di-HCl 0.25 MG Tablet PO (11:10)
[2018-07-14] MEDS: Ondansetron ODT 4 MG Tablet PO (11:10)
[2018-07-14] MEDS: Methocarbamol 750 MG Tablet PO ×2 (11:10→17:47)
[2018-07-14] MEDS: Dicyclomine 10 MG Capsule 20 MG PO ×2 (11:10→17:47)
[2018-07-14] MEDS: hydrOXYzine PAM 25 MG Capsule 50 MG PO ×2 (11:10→17:47)
[2018-07-14 14:00] VITALS: BP 114/82; PULSE 53; RESP 16; TEMP 36.4
[2018-07-14] MEDS: Ibuprofen 400 MG Tablet PO (14:42)
[2018-07-14] MEDS: cloNIDine HCl 0.1 MG Tablet PO (16:39)
[2018-07-14 17:45] VITALS: BP 112/68; PULSE 71; RESP 16; TEMP 37.1
[2018-07-14] MEDS: QUEtiapine 25 MG Tablet 50 MG PO (21:35)
[2018-07-14 21:45] VITALS: BP 110/65; PULSE 60; RESP 14; TEMP 36.9
[2018-07-15] VITALS (7 sets, daily range): BP systolic 93–139; BP diastolic 53–84; PULSE 57–79; RESP 14–18; TEMP 36.3–37.6; O2SAT 98
[2018-07-15] MEDS: hydrOXYzine PAM 25 MG Capsule 50 MG PO ×3 (01:55→18:04)
[2018-07-15] MEDS: Pramipexole Di-HCl 0.25 MG Tablet PO ×2 (01:55→18:05)
[2018-07-15] MEDS: Buprenorphine HCl 2 MG TAB.SUBL SL ×2 (06:05→18:06)
--- NOTE | 2018-07-15 10:00 | PN_ITS ---
Subjective: Chief complaint: Follow-up after admission for acute opiate withdrawal. Patient seen and examined. No acute events overnight. This morning, he co mplained of not able to sleep last night, insomnia. His withdrawal symptoms continue to improve. His vital signs are stable. - Physical Exam General: Alert, Oriented x3, Cooperative, No apparent distress HEENT: Atraumatic, PERRLA, EOMI, Normocephalic Oral: Moist Mucosa, No Gingival or Mucosal Lesions/ Ulcerations Neck: Supple, No JVD, Negative Carotid Bruits, Trachea Midline, Thyroid Normal Size and Texture Lungs: Clear to auscultation, Normal air movement, No rhonchi, No wheeze, No rales Cardiovascular: Regular rate, Regular Rhythm, Normal S1, Normal S2, No murmurs Abdomen: Bowel Sounds Present, Soft, Non Tender, Non-Distended, No Hepato- splenomegaly Extremities: No clubbing, No cyanosis, No edema Skin: No rashes, No breakdown Lymphatic: No Cervical, Supraclavicular, or Inguinal Adenopathy Neurological: Cranial nerves II-XII grossly intact, Neuro grossly intact Psych/Mental Status: Normal Affect, Appropriate Vital Signs Temp Pulse Resp BP Pulse Ox 98.6 F 60 16 93/53 L 97 07/15/18 06:06 07/15/18 06:06 07/15/18 06:06 07/15/18 06:06 07/14/18 05:40 Oxygen Delivery Method Room Air Weight: 206 lb 14.4 oz Body Mass Index (BMI) 28.8 Intake and Output for Last 24 Hours 07/13/18 07/14/18 07/15/18 23:59 23:59 23:59 Intake Total 600 / 600 700 / 700 Balance 600 / 600 700 / 700 Medical Necessity - Tobacco Use Smoking Status: Current every day smoker Tobacco Use: Cigarettes Assessment/Plan All Active Problems (Last Updated 05/03/18 @ 09:00 by Devyn Hamm MD) Acute opioid withdrawal (Acute) This is a 42 years old male patient presented to the [facility] office requesting admission for medical stabilization due to acute heroin withdrawal. #1 acute opioid withdrawal: Symptoms continued to improve, complains of insomnia. Remained on [facility] protocol with tapering course of Subutex, as needed Librium, Catapres, Bentyl, Vistaril, methocarbamol, Mirapex and trazodone. His urine drug screen was negative. Blood alcohol level was 3. His vital signs are stable. Plan: Start Ambien as needed for insomnia, continue same treatment, DC home tomorrow. #2 hypertension: Blood pressure stable, continue home lisinopril and Norvasc. #3 COPD: Clinically stable, pulse ox is maintained on room air. Continue albuterol as needed. #4 chronic back pain: Tylenol extra strength every 8 hours as needed. #5 tobacco abuse: Continue NicoDerm patch. #6 DVT prophylaxis: Low risk patient, no prophylaxis indicated, ambulate. This note was generated with [employer] dictation software. It may contain incorrect words, spelling, and punctuation that were not noted in checking the note before signing. Code Visit Inpatient E&M: 32880 Subs Hosp L2
[2018-07-15] MEDS: Lisinopril 20 MG Tablet PO (11:22)
[2018-07-15] MEDS: amLODIPine 5 MG Tablet PO (11:22)
[2018-07-15] MEDS: Methocarbamol 750 MG Tablet PO ×2 (11:30→18:06)
[2018-07-15] MEDS: Dicyclomine 10 MG Capsule 20 MG PO ×2 (11:30→18:05)
[2018-07-15] MEDS: Ibuprofen 400 MG Tablet PO ×2 (11:31→18:05)
[2018-07-15] MEDS: Ondansetron ODT 4 MG Tablet PO (15:27)
[2018-07-15] MEDS: cloNIDine HCl 0.1 MG Tablet PO (18:05)
[2018-07-15] MEDS: QUEtiapine 25 MG Tablet 50 MG PO (22:13)
[2018-07-15] MEDS: Zolpidem Tartrate 5 MG Tablet PO (22:13)
[2018-07-16] MEDS: Buprenorphine HCl 2 MG TAB.SUBL SL (05:39)
[2018-07-16] MEDS: Pramipexole Di-HCl 0.25 MG Tablet PO (05:43)
[2018-07-16] MEDS: Methocarbamol 750 MG Tablet PO (05:43)
[2018-07-16 06:00] VITALS: BP 104/55; PULSE 53; RESP 18; TEMP 36.4
[2018-07-16 09:40] VITALS: BP 122/90; PULSE 63; RESP 18; TEMP 36.4; O2SAT 96
[2018-07-16] MEDS: amLODIPine 5 MG Tablet PO (09:46)
[2018-07-16] MEDS: Lisinopril 20 MG Tablet PO (09:46)
--- NOTE | 2018-07-16 09:53 | DCINST_ITS ---
You will use the following diet at home:: Cardiac Your food should be the consistency of: Regular Discharge Activity: Return to Normal Activity Weight Bearing Status: Full weight bearing Call your doctor if you observe: Fever of 101 or Higher, Shortness of breath, Dizziness, Fainting spells, Chest pain, Increased palpitations (irregular heartbeat), Uncontrolled pain Allergies/Adverse Reactions: Allergies tramadol Allergy (Intermediate, Verified 08/24/17 09:29) Unknown acetaminophen [From Vicodin] Allergy (Verified 08/24/17 09:29) Swelling hydrocodone [From Vicodin] Allergy (Verified 08/24/17 09:29) Swelling Medications to take at Discharge albuterol sulfate HFA 90 mcg/actuation aerosol inhaler 2 puff INHALATION Q4H PRN #1 device 07/13/17 Amlodipine Besylate [Norvasc] 5 mg PO QDAY #30 tablet 05/05/18 Lisinopril 20 mg PO DAILY #30 tablet 05/05/18 Amlodipine [Norvasc] 5 mg PO DAILY #90 tablet 07/16/18 Lisinopril [Zestril] 20 mg PO DAILY #90 tablet 07/16/18 Quetiapine Fumarate [Seroquel] 50 mg PO QHS #30 tablet 07/16/18 Zolpidem Tartrate [Ambien] 5 mg PO QHS PRN PRN #30 tab 07/16/18 The following prescriptions were given: Amlodipine [Norvasc] 5 mg PO DAILY #90 tablet Lisinopril [Zestril] 20 mg PO DAILY #90 tablet Quetiapine Fumarate [Seroquel] 50 mg PO QHS #30 tablet Zolpidem Tartrate [Ambien] 5 mg PO QHS PRN PRN #30 tab PRN Reason: Insomnia Primary Care Physician: Care Physician,No Primary [Primary Care Provider] - Please follow up with your Primary Care Physician in: 2 weeks. Test Results: Test results from this visit will be discussed in further detail at your follow- up appointment, if applicable.
--- NOTE | 2018-07-16 10:26 | NURSING ---
Pt called that rx was just received on this unit, cannot erx it. Informed he can pick it up on 3rd floor.
--- NOTE | 2018-07-16 12:29 | PCM.DC.SUM ---
Discharge Date and Diagnosis Date of Admission: 07/13/18 Date of Discharge: 07/16/18 - Primary Discharge Diagnosis Acute opioid withdrawal admitted for medical stabilization. - Secondary Discharge Diagnosis Chronic Problems (Last Updated 05/03/18 @ 09:00 by Devyn Hamm MD) Tobacco dependency (Chronic) Restrictive airway disease (Chronic) Chronic bronchitis (Chronic) HTN (hypertension) (Chronic) Back pain (Chronic) Tobacco use (Chronic) Polysubstance abuse (Chronic) Hospital Course and Treatment Operations: None Procedures: None Summary of Care Provided: Patient seen and examined on the day of discharge and appeared to be stable to be discharged home. Withdrawal symptoms continued to improve and is feeling fine. His vital signs are stable. The patient is a 42 year old M presented to the [facility] office requesting admission for medical stabilization for acute opiate withdrawal. Patient has been snorting heroin and he was admitted on April, for acute withdrawal and he was able to stay away from drugs for 1 month on and then he relapsed. His presenting symptoms was restlessness, anxiety, runny nose and abdominal cramps. His urine drug screen was negative. Blood alcohol level was 3. He was treated with [facility] protocol with tapering course of Subutex, as needed Librium, Catapres, Bentyl, Vistaril, methocarbamol, Mirapex and trazodone. His other chronic medical problems were stable throughout admission. His vital signs has been stable throughout admission. With above-mentioned treatment, patient symptoms improved and he did very well. Upon discharge, prescription was given for Norvasc and lisinopril for hypertension as well as Seroquel and Ambien to help him sleep at night. Patient discharged home in a stable medical condition, prescriptions given as above, highly recommended to find a primary care physician and follow-up with him/her in 2 weeks and follow-up with [facility] team as requested. - Physical Exam General: Alert, Oriented x3, Cooperative, No apparent distress HEENT: Atraumatic, PERRLA, EOMI, Normocephalic Oral: Moist Mucosa Neck: Supple, No JVD, Negative Carotid Bruits, Trachea Midline, Thyroid Normal Size and Texture Lungs: Clear to auscultation, Normal air movement, No rhonchi, No wheeze, No rales Cardiovascular: Regular rate, Regular Rhythm, Normal S1, Normal S2, PMI Normal Abdomen: Bowel Sounds Present, Soft, Non Tender, Non-Distended, No Hepato-splenomegaly Extremities: No clubbing, No cyanosis, No edema Skin: No rashes, No breakdown Lymphatic: No Cervical, Supraclavicular, or Inguinal Adenopathy Neurological: Cranial nerves II-XII grossly intact, Neuro grossly intact Psych/Mental Status: Normal Affect, Appropriate Vital Signs Temp Pulse Resp BP Pulse Ox 97.5 F L 63 18 122/90 H 96 07/16/18 09:40 07/16/18 09:40 07/16/18 09:40 07/16/18 09:40 07/16/18 09:40 Oxygen Delivery Method Room Air Weight: 206 lb 14.4 oz Body Mass Index (BMI) 28.8 Intake and Output for Last 24 Hours 07/14/18 07/15/18 07/16/18 23:59 23:59 23:59 Intake Total 600 / 600 1520 / 1520 1200 / 1200 Balance 600 / 600 1520 / 1520 1200 / 1200 Discharge Activity: Return to Normal Activity Weight Bearing Status: Full weight bearing Call your doctor if you observe: Fever of 101 or Higher, Shortness of breath, Dizziness, Fainting spells, Chest pain, Increased palpitations (irregular heartbeat), Uncontrolled pain Home Medications: Medications to take at Discharge albuterol sulfate HFA 90 mcg/actuation aerosol inhaler 2 puff INHALATION Q4H PRN #1 device 07/13/17 Amlodipine Besylate [Norvasc] 5 mg PO QDAY #30 tablet 05/05/18 Lisinopril 20 mg PO DAILY #30 tablet 05/05/18 Amlodipine [Norvasc] 5 mg PO DAILY #90 tablet 07/16/18 Lisinopril [Zestril] 20 mg PO DAILY #90 tablet 07/16/18 Quetiapine Fumarate [Seroquel] 50 mg PO QHS #30 tablet 07/16/18 Zolpidem Tartrate [Ambien] 5 mg PO QHS PRN PRN #30 tab 07/16/18 Following Prescrptions Were Given to Patient: Amlodipine [Norvasc] 5 mg PO DAILY #90 tablet Lisinopril [Zestril] 20 mg PO DAILY #90 tablet Quetiapine Fumarate [Seroquel] 50 mg PO QHS #30 tablet Zolpidem Tartrate [Ambien] 5 mg PO QHS PRN PRN #30 tab PRN Reason: Insomnia Primary Care Physician: Care Physician,No Primary [Primary Care Provider] - Please follow up with your Primary Care Physician in: 2 weeks. Disposition: Home Minutes spent on discharge:: 26 Patient Condition:: Stable Medical Necessity - Tobacco Use Smoking Status: Current every day smoker Tobacco Use: Cigarettes Meaningful Use Info Meaningful Use Diagnoses (Choose all that apply): None applicable Code Visit Inpatient E&M: 36982 Disch Hosp
== END 2018-07-16 10:09 | disposition home or self-care (01) | DRG 773 ==
LOC: MS2 07-14 06:25 → MS3 07-14 14:48
PROVIDERS: Admitting Provider Hospitalist; Referring Provider Hospitalist; Visit Provider Hospitalist
DX: F11.23 Opioid dependence with withdrawal (principal); I10 Essential (primary) hypertension; J44.9 Chronic obstructive pulmonary disease, unspecified; F17.210 Nicotine dependence, cigarettes, uncomplicated; G89.29 Other chronic pain; M54.9 Dorsalgia, unspecified
CPT/HCPCS: 36415; 80307; 80320; 99406; G0480

== ENCOUNTER 2018-10-18 15:29 | Inpatient (IN) | payer MEDICAID, SELFPAY ==
[2018-10-18 15:46] VITALS: BMI 30.2
[2018-10-18 15:52] VITALS: BMI 30.2
[2018-10-18 16:15] VITALS: BP 165/108; PULSE 66; RESP 18; TEMP 36.6
[2018-10-18] MEDS: Pramipexole Di-HCl 0.25 MG Tablet PO (16:15)
[2018-10-18] MEDS: Ibuprofen 600 MG Tablet PO (16:15)
[2018-10-18] MEDS: Ondansetron ODT 4 MG Tablet PO ×2 (16:15→22:20)
[2018-10-18] MEDS: Buprenorphine HCl 2 MG TAB.SUBL SL (16:15)
--- NOTE | 2018-10-18 16:34 | HP.PCM_ITS ---
<Misa Dahl - Last Filed: 10/18/18 16:38> Problem List (1) Acute opioid withdrawal Status: Acute (2) Tobacco dependency Status: Chronic (3) Restrictive airway disease Status: Chronic (4) Chronic bronchitis Status: Chronic (5) HTN (hypertension) Status: Chronic (6) Back pain Status: Chronic (7) Polysubstance abuse Status: Chronic History of Present Illness Date of Admission: 10/18/18 Chief Complaint: Opioid withdrawal. The patient is a 42 year old M who presents through [facility] program due to opioid withdrawal. He admits to 1-1/2 g of heroin via snorting daily with last use at 7 AM yesterday morning. Currently complains of abdominal cramping, fever, chills, muscle cramping and tremors. He was recently discharged following opioid withdrawal protocol July 2018. Denies alcohol use. Current half a pack per day smoker. He denies marijuana, alcohol or other drug use. He has a past medical history of hypertension, COPD, chronic back pain, tobacco dependence. Past Medical History Past Medical History (Chronic Problems): Chronic Problems (Last Updated 05/03/18 @ 09:00 by Devyn Hamm MD) Tobacco dependency (Chronic) Restrictive airway disease (Chronic) Chronic bronchitis (Chronic) HTN (hypertension) (Chronic) Back pain (Chronic) Polysubstance abuse (Chronic) Medical History: Medical History (Last Updated 05/03/18 @ 09:00 by Devyn Hamm MD) Tobacco dependency (Chronic) F17.200 Restrictive airway disease (Chronic) J98.4 Chronic bronchitis (Chronic) J42 HTN (hypertension) (Chronic) I10 Back pain (Chronic) M54.9 Tobacco use (Chronic) Z72.0 Polysubstance abuse (Chronic) F19.10 Allergies tramadol Allergy (Intermediate, Verified 10/18/18 15:44) Itching acetaminophen [From Vicodin] Allergy (Verified 10/18/18 15:44) Swelling hydrocodone [From Vicodin] Allergy (Verified 10/18/18 15:44) Swelling Home Medications: Ambulatory Orders Medication Instructions Recorded albuterol sulfate HFA 90 2 puff INHALATION Q4H PRN #1 device 07/13/17 mcg/actuation aerosol inhaler Amlodipine Besylate [Norvasc] 5 mg PO QDAY #30 tablet 05/05/18 Lisinopril 20 mg PO DAILY #30 tablet 05/05/18 Quetiapine Fumarate [Seroquel] 50 mg PO QHS #30 tablet 07/16/18 Zolpidem Tartrate [Ambien] 5 mg PO QHS PRN PRN #30 tab 07/16/18 Surgical History: - - Bowel resecton s/p trauma to abd. Psychiatric History: No pertinent psych hx Lives: With Family Smoking Status: Current every day smoker Tobacco Use: Cigarettes Alcohol: None Drugs: Heroin - *Family History Maternal Family History: Family History (Last Reviewed 10/18/18 @ 16:34 by SHALOM Longo) Mother Hypertension Diabetes COPD (chronic obstructive pulmonary disease) Aunt Cancer History Items: Diabetes, Heart Disease Paternal Family History: Family History (Last Reviewed 10/18/18 @ 16:34 by SHALOM Longo) Mother Hypertension Diabetes COPD (chronic obstructive pulmonary disease) Aunt Cancer History Items: - - Denies paternal medical history including cardiac history. Review of Systems Constitutional: Reports: Chills, Fever. Denies: Weight Change HEENT: Denies: Head Aches, Nasal Congestion, Sinus Congestion, Sinus Drainage Cardiovascular: Denies: Chest Pain, Palpitations Respiratory: Denies: Cough, Shortness of breath at rest, Sputum production Gastrointestinal: Reports: Nausea. Denies: Abdominal Pain, Vomiting Genitourinary: Denies: Dysuria Musculoskeletal: Denies: Joint Pain, Joint Tenderness Skin: Denies: Rash, Wounds Neurological: Denies: Numbness, Tingling, Focal weakness Psychiatric: Denies: Anxiety, Depression, Homicidal Ideations, Suicidal Ideations Hematologic/ Lymphatic: Denies: Easy Bruising, Easy Bleeding VTE Information - Inpt Only VTE Present on Admission: No VTE Mechan Device Prophylaxis: None VTE Pharm Prophylaxis ordered?: Yes - Physical Exam General: Alert, Oriented x3, Cooperative HEENT: Atraumatic, PERRLA, EOMI, Normocephalic Neck: Supple, No JVD, Negative Carotid Bruits Lungs: Clear to auscultation, Normal air movement Cardiovascular: Regular rate, Regular Rhythm, Normal S1, Normal S2, No murmurs Abdomen: Bowel Sounds Present, Soft, Non Tender, Non-Distended Extremities: No clubbing, No cyanosis, No edema, Capillary Refill Less than 3 Seconds Skin: No rashes, No breakdown Musculoskeletal: No Tenderness to Palpation of Joints or Extremities Neurological: Cranial nerves II-XII grossly intact, Neuro grossly intact Psych/Mental Status: Normal Affect, Appropriate Weight: 216 lb 6.4 oz Body Mass Index (BMI) 30.2 Laboratory Tests Past 24 Hrs 10/18/18 10/18/18 16:05 16:05 WBC Pending RBC Pending Hgb Pending Hct Pending MCV Pending MCH Pending MCHC Pending RDW Pending RDW Differential Pending Plt Count Pending Neut % (Auto) Pending Absolute Neuts (auto) Pending Total Counted Pending Sodium Pending Potassium Pending Chloride Pending Carbon Dioxide Pending Anion Gap Pending BUN Pending Creatinine Pending Est GFR (MDRD) Af Amer Pending Est GFR (MDRD) Non-Af Pending BUN/Creatinine Ratio Pending Glucose Pending Calcium Pending Total Bilirubin Pending AST Pending ALT Pending Alkaline Phosphatase Pending Total Protein Pending Albumin Pending Assessment/Plan All Active Problems (Last Updated 05/03/18 @ 09:00 by Devyn Hamm MD) Acute opioid withdrawal (Acute) 1. Acute opioid withdrawal-medical stabilization per protocol. Former admissions April 2018 and July 2018 with the same issue. Obtain urine drug screen. PRN regimen for somatic complaints. Subutex taper. Further disposition per [facility] program. Feel patient needs more aggressive follow- up given repeated outpatient relapse. 2. Hypertension-no longer taking home regimen. Resume previously prescribed lisinopril and Norvasc. 3. Chronic COPD-no acute exacerbation. As needed albuterol. 4. Chronic back pain-PRN Tylenol. 5. Tobacco dependence-encouraged smoking cessation. Nicotine abuse and patch. DVT prophylaxis-not indicated, low risk. This patient was seen by SHALOM Longo under the supervision of Dr. Fina teague. <Brooke Gonzalez - Last Filed: 10/18/18 16:48> History of Present Illness The patient is a 42 year old M [] Past Medical History Medical History: Medical History (Last Updated 05/03/18 @ 09:00 by Devyn Hamm MD) Tobacco dependency (Chronic) F17.200 Restrictive airway disease (Chronic) J98.4 Chronic bronchitis (Chronic) J42 HTN (hypertension) (Chronic) I10 Back pain (Chronic) M54.9 Tobacco use (Chronic) Z72.0 Polysubstance abuse (Chronic) F19.10 Allergies tramadol Allergy (Intermediate, Verified 10/18/18 15:44) Itching acetaminophen [From Vicodin] Allergy (Verified 10/18/18 15:44) Swelling hydrocodone [From Vicodin] Allergy (Verified 10/18/18 15:44) Swelling - *Family History Maternal Family History: Family History (Last Reviewed 10/18/18 @ 16:34 by Misa Dahl NP-C) Mother Hypertension Diabetes COPD (chronic obstructive pulmonary disease) Aunt Cancer Paternal Family History: Family History (Last Reviewed 10/18/18 @ 16:34 by Misa Dahl NP-C) Mother Hypertension Diabetes COPD (chronic obstructive pulmonary disease) Aunt Cancer - Physical Exam Weight: 98.157 kg Body Mass Index (BMI) 30.2 Laboratory Tests Past 24 Hrs 10/18/18 10/18/18 16:05 16:05 WBC Pending RBC Pending Hgb Pending Hct Pending MCV Pending MCH Pending MCHC Pending RDW Pending RDW Differential Pending Plt Count Pending Neut % (Auto) Pending Absolute Neuts (auto) Pending Total Counted Pending Sodium Pending Potassium Pending Chloride Pending Carbon Dioxide Pending Anion Gap Pending BUN Pending Creatinine Pending Est GFR (MDRD) Af Amer Pending Est GFR (MDRD) Non-Af Pending BUN/Creatinine Ratio Pending Glucose Pending Calcium Pending Total Bilirubin Pending AST Pending ALT Pending Alkaline Phosphatase Pending Total Protein Pending Albumin Pending Assessment/Plan This patient was seen in conjunction with Misa Dahl NP. I have independently interviewed and examined the patient and reviewed pertinent historical, laboratory, and other data. Please refer to her note for patient's presentation, findings, and recommendations. 42-year-old male with past medical history of hypertension, polysubstance use, nicotine dependence who comes in for medical stabilization and [facility] protocol. Patient admits to having nausea but no vomiting, no diarrhea, having hot and cold flashes, abdominal discomfort. He admits to using about 1 g of heroin every day and smoking about 1/2 packs of cigarettes daily. He has been in detox 3 times, this is his fourth admission for detox. He plans on following with outpatient withdrawal program on discharge PSHx: Bowel resection secondary to trauma to abdomen FHx: Heart disease in mother, DM SHx: Smokes 1-one and half pack of cigarettes a day, denies use of alcohol, uses heroin Vitals were reviewed -stable Physical Exam: Gen: Looks in some discomfort, not pale, not jaundiced, alert oriented x3 CVS:HS I +II, regular, no murmurs RESP: CTA GI: BS present and normal, soft, nontender, no palpable organs EXT:No edema ASSESSMENT: 1. Acute opioid withdrawal, CINA score by [facility] is 16 2. Polysubstance use 3. Hypertension 4. Chronic back pain 5. Nicotine dependence Plan: Continue with a [facility] protocol Continue on home BP meds Code Visit Inpatient E&M: 44049 Init Hosp L2
[2018-10-18 16:40] LABS: Absolute Lymphocyte Count 1.04 X10^3/ul (0.83-4.51); Absolute Neutrophil Count 5.6 X10^3/uL (2.0-7.7); Basophil# 0.01 X10^3/uL; Basophil% 0.1 % (0-1); Eosinophil# 0.06 X10^3/uL; Eosinophils% 0.8 % (0-5); Hematocrit 42.9 % (40-54); Hemoglobin 14.8 g/dl (13.0-16.5); Lymphocyte # 1.04 X10^3/ul (4.0); Lymphocyte % 14.6 % (19-41); Mean Corp Hgb Conc 34.5 g/gl (32-36); Mean Corpuscular Hgb 29.7 pg (27.0-32.0); Mean Corpuscular Volume 86.1 fL (80-94); Mean Platelet Vol. 8.8 fl (6.2-12.0); Monocyte# 0.42 X10^3/uL; Monocyte% 5.9 % (0-10); Neutrophil % 78.5 % (47-70); Platelet Count 329 K/mm3 (150-450); RBC Distribution Width CV 13.6 % (11.6-14.6); RBC Distribution Width SD 42.3 fl (35.1-43.9); Red Blood Count 4.98 M/mm3 (4.6-6.2); White Blood Count 7.1 K/mm3 (4.4-11.0)
[2018-10-18 16:41] LABS: ALB/GLOB Ratio 0.8 RATIO (0.9-2.4); AST(SGOT) 26 U/L (15-37); Alanine Aminotransfer ALT/SGPT 24 U/L (16-61); Albumin, Serum 3.7 g/dL (3.2-5.0); Alkaline Phosphatase 97 U/L (45-117); Anion Gap 5 (5-15); BUN 8 mg/dL (7-18); BUN/Creat Ratio 8.6 RATIO (10-20); Calcium,Total 9.3 mg/dL (8.5-10.1); Chloride 105 mmol/L (98-107); Creatinine, Serum 0.93 mg/dL (0.70-1.30); EST Glomerular Filtration Rate 94 mL/min (>60); Est Glom Filt Rate - Afr Amer 113 mL/min (>60); Estimated Creatinine Clearance 107.96 ml/min; Globulin 4.6 g/dL (2.2-4.2); Glucose 89 mg/dL (74-106); Potassium 4.4 mmol/L (3.5-5.1); Protein, Total 8.3 g/dL (6.4-8.2); Sodium Level 137 mmol/L (136-145)
[2018-10-18 16:45] LABS: POSITIVE COUNT NO; POSITIVE DIFFERENTIAL NO; POSITIVE MORPHOLOGY NO
[2018-10-18] MEDS: cloNIDine HCl 0.1 MG Tablet PO (19:35)
[2018-10-18 20:08] LABS: Amphetamine Urine VISTA NEGATIVE (<1000 ng/mL); Barbiturate Urine VISTA NEGATIVE (< 200 ng/mL); Benzodiazepine Urine VISTA NEGATIVE (< 200 ng/mL); Cocaine Urine VISTA NEGATIVE (< 300 ng/mL); Ecstacy Urine VISTA NEGATIVE (< 500 ng/mL); Methadone Urine VISTA NEGATIVE (< 300 ng/mL); PCP Urine VISTA NEGATIVE (< 25 ng/mL); THC Urine VISTA POSITIVE (< 50 ng/mL); Vista UDS pH Range 7
[2018-10-18 22:12] VITALS: BP 162/84; PULSE 78; RESP 16; TEMP 36.8
[2018-10-18] MEDS: QUEtiapine 25 MG Tablet 50 MG PO (22:19)
[2018-10-18] MEDS: Dicyclomine 10 MG Capsule 20 MG PO (22:20)
[2018-10-18] MEDS: traZODone 50 MG Tablet PO (22:20)
[2018-10-18] MEDS: Methocarbamol 750 MG Tablet PO (22:20)
[2018-10-18] MEDS: hydrOXYzine PAM 25 MG Capsule 50 MG PO (22:20)
[2018-10-19] VITALS (7 sets, daily range): BP systolic 118–146; BP diastolic 78–95; PULSE 59–87; RESP 16–18; TEMP 36.6–37.1; O2SAT 98
[2018-10-19] MEDS: Buprenorphine HCl 2 MG TAB.SUBL SL ×3 (00:05→16:28)
[2018-10-19] MEDS: Acetaminophen 500 MG Tablet PO ×2 (05:52→22:00)
[2018-10-19] MEDS: Methocarbamol 750 MG Tablet PO ×3 (05:52→22:01)
--- NOTE | 2018-10-19 08:48 | [facility] ---
Patient has aftercare appointment at [facility] in [place] for AOD assessment / MAT program, Janice on 10/25/2018 at 11:30am.
[2018-10-19] MEDS: amLODIPine 5 MG Tablet PO (10:03)
[2018-10-19] MEDS: Lisinopril 20 MG Tablet PO (10:03)
[2018-10-19] MEDS: hydrOXYzine PAM 25 MG Capsule 50 MG PO ×2 (13:39→22:01)
--- NOTE | 2018-10-19 14:57 | CHAPLAIN ---
Type of Pastoral Visit ___ Initial Visit ___ Follow-up Visit ___ On-call Visit ___ General Patient Visit ___ Spiritual Assessment ___ Family Conference ___ Bereavement ___ Rapid Response ___ Code Blue _x__ Other (describe below) Pastoral Care Referral From ___ Patient ___ Family ___ Nurse ___ Physician ___ Diesel Fitter Mechanic ___ Flume Worker _x__ Other (describe below) Sacrament/Intervention ___ Active listening ___ Anointing ___ Alevism ___ Bereavement ___ Communion ___ Sadia exploration ___ ___ Life review ___ Prayer ___ Reconciliation ___ Sacrament of Sick ___ Supportive presence ___ Wedding _x__ Other (describe below) Pastoral Comments RN asked patient if he would like a visit; followed RN into room and introduced self and role to pt; pt said I'm fine and no thanks
--- NOTE | 2018-10-19 18:54 | PCM.PROGNOTE ---
Subjective: Patient was seen and examined today, his symptoms of anxiety are less today. I inquired to the patient about his discharge planning, he did not seem to be certain what his discharge plan was actually consisting of, he states he understood he was supposed to be placed on Vivitrol but he was worried that he was not going to be able to get an injection on the day he was discharged from the hospital here-I confirm this, I told him we do not do these injections here. - Physical Exam General: Alert, Oriented x3, Cooperative, No apparent distress HEENT: Atraumatic, PERRLA, EOMI, Normocephalic Neck: Supple, No JVD, Negative Carotid Bruits Lungs: Clear to auscultation, Normal air movement, No rhonchi, No wheeze Cardiovascular: Regular rate, Regular Rhythm, Normal S1, Normal S2, No murmurs Abdomen: Bowel Sounds Present, Soft, Non Tender Extremities: No clubbing, No cyanosis, No edema, Capillary Refill Less than 3 Seconds Skin: No rashes, No breakdown Musculoskeletal: No Tenderness to Palpation of Joints or Extremities Neurological: Cranial nerves II-XII grossly intact, Neuro grossly intact, Sensory exam intact to light touch and pain Psych/Mental Status: Normal Affect, Appropriate, Alert and oriented to time, place, person, mood and affect Vital Signs Temp Pulse Resp BP 98.0 F 72 16 126/89 H 10/19/18 13:34 10/19/18 13:34 10/19/18 13:34 10/19/18 13:34 Weight: 98.157 kg Body Mass Index (BMI) 30.2 Intake and Output for Last 24 Hours 10/17/18 10/18/18 10/19/18 23:59 23:59 23:59 Intake Total 120 / 120 300 / 300 Balance 120 / 120 300 / 300 Laboratory Tests Past 24 Hrs 10/18/18 19:25 Urine Opiates Screen POSITIVE H Urine Methadone Screen NEGATIVE Ur Barbiturates Screen NEGATIVE Ur Phencyclidine Scrn NEGATIVE Ur Amphetamines Screen NEGATIVE U Methamphetamin-MDMA NEGATIVE U Benzodiazepines Scrn NEGATIVE Urine Cocaine Screen NEGATIVE U Cannabinoids Screen POSITIVE H Ur Drug Screen Comment Medical Necessity - Tobacco Use Smoking Status: Current every day smoker Tobacco Use: Cigarettes Assessment/Plan All Active Problems (Last Updated 05/03/18 @ 09:00 by Devyn Hamm MD) Acute opioid withdrawal (Acute) 1 acute opioid withdrawal-continue present medications, I will need to check with [facility] concerning discharge planning #2 hypertension #3 polysubstance abuse #4 chronic back pain Code Visit Inpatient E&M: 01641 Subs Hosp L2
[2018-10-19] MEDS: QUEtiapine 25 MG Tablet 50 MG PO (21:54)
[2018-10-19] MEDS: traZODone 50 MG Tablet PO (21:54)
[2018-10-19] MEDS: cloNIDine HCl 0.1 MG Tablet PO (22:00)
[2018-10-19] MEDS: Pramipexole Di-HCl 0.25 MG Tablet PO (22:01)
[2018-10-20 00:07] VITALS: BP 99/60; PULSE 68; RESP 16; TEMP 36.5; O2SAT 96
[2018-10-20 00:09] VITALS: BP 99/60; PULSE 68; RESP 16; TEMP 36.5
[2018-10-20] MEDS: Buprenorphine HCl 2 MG TAB.SUBL SL ×2 (00:10→08:19)
[2018-10-20] MEDS: Ondansetron ODT 4 MG Tablet PO (00:12)
[2018-10-20] MEDS: Ibuprofen 600 MG Tablet PO ×2 (00:12→12:26)
[2018-10-20 08:00] VITALS: BP 109/64; PULSE 60; RESP 16; TEMP 36.8; O2SAT 95
[2018-10-20] MEDS: cloNIDine HCl 0.1 MG Tablet PO (08:19)
[2018-10-20] MEDS: Dicyclomine 10 MG Capsule 20 MG PO (08:19)
[2018-10-20] MEDS: Lisinopril 20 MG Tablet PO (08:20)
[2018-10-20] MEDS: amLODIPine 5 MG Tablet PO (08:20)
--- NOTE | 2018-10-20 08:37 | NURSING ---
pt request door to room closed and he said he will call when he needs/wants us to come in
[2018-10-20 10:00] VITALS: BP 109/64; PULSE 60; RESP 16; TEMP 36.8
[2018-10-20] MEDS: Methocarbamol 750 MG Tablet PO (12:27)
[2018-10-20] MEDS: hydrOXYzine PAM 25 MG Capsule 50 MG PO (12:27)
[2018-10-20 12:37] VITALS: BP 110/60; PULSE 62; RESP 16; TEMP 36.7
--- NOTE | 2018-10-20 14:35 | PCM.PROGNOTE ---
Subjective: Pt resting comfortably in recliner NAD. No tremor, anxiety, nausea, pain, muscle aches. He feels that he is much improved. His primary concern is getting vivitrol after he leaves. - Physical Exam General: Alert, Oriented x3, Cooperative HEENT: Atraumatic, PERRLA, EOMI, Normocephalic Neck: Supple, No JVD, Negative Carotid Bruits Lungs: Clear to auscultation, Normal air movement Cardiovascular: Regular rate, No murmurs Abdomen: Bowel Sounds Present, Soft, Non Tender Extremities: No edema, Capillary Refill Less than 3 Seconds Skin: No rashes, No breakdown Musculoskeletal: No Tenderness to Palpation of Joints or Extremities Neurological: Cranial nerves II-XII grossly intact Psych/Mental Status: Normal Affect, Appropriate Vital Signs Temp Pulse Resp BP Pulse Ox 98.1 F 62 16 110/60 95 10/20/18 12:37 10/20/18 12:37 10/20/18 12:37 10/20/18 12:37 10/20/18 08:00 Oxygen Delivery Method Room Air Weight: 216 lb 6.386 oz Body Mass Index (BMI) 30.2 Intake and Output for Last 24 Hours 10/18/18 10/19/18 10/20/18 23:59 23:59 23:59 Intake Total 120 / 120 300 / 300 500 / 500 Balance 120 / 120 300 / 300 500 / 500 Medical Necessity - Tobacco Use Smoking Status: Current every day smoker Tobacco Use: Cigarettes Assessment/Plan All Active Problems (Last Updated 05/03/18 @ 09:00 by Devyn Hamm MD) Acute opioid withdrawal (Acute) 1. Acute opiate withdrawal - continue protocol. Was snorting heroin. Improving 2. HTN - controlled. 3. Polysubstance abuse 4. 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 DC planning: Per Ester he has already arranged an appointment for vivitrol as an outpatient at a place in [place] and he cannot get vivitrol for 7 days after DC as it will put him in withdrawal. Medical stabiliation day 3 of This patient was seen by Keyshawn Coronado PA-C under the supervision of Doctor Zheng.
--- NOTE | 2018-10-20 14:38 | PN_ITS ---
Subjective: Pt resting comfortably in recliner NAD. No tremor, anxiety, nausea, pain, muscle aches. He feels that he is much improved. His primary concern is getting vivitrol after he leaves. - Physical Exam General: Alert, Oriented x3, Cooperative HEENT: Atraumatic, PERRLA, EOMI, Normocephalic Neck: Supple, No JVD, Negative Carotid Bruits Lungs: Clear to auscultation, Normal air movement Cardiovascular: Regular rate, No murmurs Abdomen: Bowel Sounds Present, Soft, Non Tender Extremities: No edema, Capillary Refill Less than 3 Seconds Skin: No rashes, No breakdown Musculoskeletal: No Tenderness to Palpation of Joints or Extremities Neurological: Cranial nerves II-XII grossly intact Psych/Mental Status: Normal Affect, Appropriate Vital Signs Temp Pulse Resp BP Pulse Ox 98.1 F 62 16 110/60 95 10/20/18 12:37 10/20/18 12:37 10/20/18 12:37 10/20/18 12:37 10/20/18 08:00 Oxygen Delivery Method Room Air Weight: 216 lb 6.386 oz Body Mass Index (BMI) 30.2 Intake and Output for Last 24 Hours 10/18/18 10/19/18 10/20/18 23:59 23:59 23:59 Intake Total 120 / 120 300 / 300 500 / 500 Balance 120 / 120 300 / 300 500 / 500 Medical Necessity - Tobacco Use Smoking Status: Current every day smoker Tobacco Use: Cigarettes Assessment/Plan All Active Problems (Last Updated 05/03/18 @ 09:00 by Devyn Hamm MD) Acute opioid withdrawal (Acute) 1. Acute opiate withdrawal - continue protocol. Was snorting heroin. Improving 2. HTN - controlled. 3. Polysubstance abuse 4. 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 DC planning: Per Ester he has already arranged an appointment for vivitrol as an outpatient at a place in [place] and he cannot get vivitrol for 7 days after DC as it will put him in withdrawal. Medical stabiliation day 3 of This patient was seen by Keyshawn Coronado PA-C under the supervision of Doctor Zheng.
--- NOTE | 2018-10-20 16:13 | DS.PCM_ITS ---
Discharge Date and Diagnosis Date of Admission: 10/18/18 Date of Discharge: 10/20/18 - Primary Discharge Diagnosis Acute heroin withdrawal Hypertension Polysubstance abuse Chronic back pain - Secondary Discharge Diagnosis Chronic Problems (Last Updated 05/03/18 @ 09:00 by Devyn Hamm MD) Tobacco dependency (Chronic) Restrictive airway disease (Chronic) Chronic bronchitis (Chronic) HTN (hypertension) (Chronic) Back pain (Chronic) Polysubstance abuse (Chronic) Hospital Course and Treatment Operations: None Procedures: None Summary of Care Provided: Hospital course: The patient is a 42 year old M with past medical history of heroin abuse, snorts heroin, history of chronic back pain, hypertension, who presented to the hospital requesting assistance with heroin detox at the time and acute heroin withdrawal with symptoms including abdominal cramping, fevers, chills, muscle cramps, tremors. He had been snorting 1-1/2 g of heroin daily. He was admitted to the medical stabilization program and started on Suboxone taper. He was doing well with the program until he suddenly decided to leave [place] without warning on the third day. The day of discharge she did appear comfortable when he was examined, and did not have any complaints. He was most concerned about obtaining Vivitrol after he was discharged. His case was discussed with Ester and she had indicated that he had already been set up as an outpatient to get Vivitrol after his discharge from here. He will be obtaining this from a clinic in [place]. Hopefully the patient follows up with this after he goes home. This patient was seen by Keyshawn Coronado PA-C under the supervision of Doctor Norm. [] - Physical Exam General: Alert, Oriented x3, Cooperative HEENT: Atraumatic, PERRLA, EOMI, Normocephalic Neck: Supple, No JVD, Negative Carotid Bruits Lungs: Clear to auscultation, Normal air movement Cardiovascular: Regular rate, No murmurs Abdomen: Bowel Sounds Present, Soft, Non Tender Extremities: No edema, Capillary Refill Less than 3 Seconds Skin: No rashes, No breakdown Musculoskeletal: No Tenderness to Palpation of Joints or Extremities Neurological: Cranial nerves II-XII grossly intact Psych/Mental Status: Normal Affect, Appropriate Vital Signs Temp Pulse Resp BP Pulse Ox 98.1 F 62 16 110/60 95 10/20/18 12:37 10/20/18 12:37 10/20/18 12:37 10/20/18 12:37 10/20/18 08:00 Oxygen Delivery Method Room Air Weight: 216 lb 6.386 oz Body Mass Index (BMI) 30.2 Intake and Output for Last 24 Hours 10/18/18 10/19/18 10/20/18 23:59 23:59 23:59 Intake Total 120 / 120 300 / 300 500 / 500 Balance 120 / 120 300 / 300 500 / 500 Discharge Diet: No Restrictions Discharge Activity: Return to Normal Activity Home Medications: Medications to take at Discharge albuterol sulfate HFA 90 mcg/actuation aerosol inhaler 2 puff INHALATION Q4H PRN #1 device 07/13/17 Amlodipine Besylate [Norvasc] 5 mg PO QDAY #30 tablet 05/05/18 Lisinopril 20 mg PO DAILY #30 tablet 05/05/18 Quetiapine Fumarate [Seroquel] 50 mg PO QHS #30 tablet 07/16/18 Zolpidem Tartrate [Ambien] 5 mg PO QHS PRN PRN #30 tab 07/16/18 Primary Care Physician: Care Physician,No Primary [Primary Care Provider] - Additional Instructions: Follow up with [facility] as previously arranged. Disposition: Against Medical Advice Minutes spent on discharge:: 35 Patient Condition:: Stable Medical Necessity - Tobacco Use Smoking Status: Current every day smoker Tobacco Use: Cigarettes Meaningful Use Info Meaningful Use Diagnoses (Choose all that apply): None applicable
== END 2018-10-20 15:32 | disposition left against medical advice (07) | DRG 770 ==
PROVIDERS: Admitting Provider Internal Medicine; Referring Provider Internal Medicine; Visit Provider Internal Medicine
DX: F11.23 Opioid dependence with withdrawal (principal); I10 Essential (primary) hypertension; F17.210 Nicotine dependence, cigarettes, uncomplicated; G89.29 Other chronic pain; M54.9 Dorsalgia, unspecified; F19.10 Other psychoactive substance abuse, uncomplicated; J42 Unspecified chronic bronchitis
CPT/HCPCS: 36415; 80053; 80307; 85025; 99406

== ENCOUNTER 2020-05-05 16:14 | Emergency (ER) | payer MEDICAID, SELFPAY ==
[2020-05-05 16:14] VITALS: BP 159/108; PULSE 83; RESP 15; TEMP 36.2; O2SAT 100; BMI 28.5
--- NOTE | 2020-05-05 16:48 | ED.DCSUM_ITS ---
History of Present Illness Chief Complaint: Male Pain/Injury Informant: Patient Narrative: Patient is a 44-year-old previously healthy male who presents to the emergency department for painful lesions on his penis. He had unprotected sexual intercourse with his on and off girlfriend last week. He noticed the lesions occurred this past Tuesday. Has never had this before in the past. They are painful. Feels like he has had some minimal discharge present. No dysuria or hematuria. Denies any history of STDs in the past. He denies any systemic symptoms including any fever/chills, nausea/vomiting. No abdominal pain. No flank pain. No change in bowel habits. Past Medical History - Allergies and Home Meds Allergies/Adverse Reactions: Allergies tramadol Allergy (Intermediate, Verified 05/05/20 16:16) Itching acetaminophen [From Vicodin] Allergy (Verified 05/05/20 16:16) Swelling hydrocodone [From Vicodin] Allergy (Verified 05/05/20 16:16) Swelling Primary Care Physician: Jorge Acevedo DO [STAFF PHYSICIAN] - 1 Week if not improving Prior records reviewed: Yes Past Medical History: - - Hypertension Surgical History: - - Bowel resecton s/p trauma to abd. Smoking Status: Current every day smoker - Family History Maternal Family History: Family History (Last Reviewed 10/18/18 @ 16:34 by Misa Dahl NP, AGRICULTURAL RESEARCH ENGINEER-C) Mother Hypertension Diabetes COPD (chronic obstructive pulmonary disease) Aunt Cancer Family History: Reports: Diabetes, Heart Disease Paternal Family History: Family History (Last Reviewed 10/18/18 @ 16:34 by Misa Dahl NP, AGRICULTURAL RESEARCH ENGINEER-C) Mother Hypertension Diabetes COPD (chronic obstructive pulmonary disease) Aunt Cancer Family History: Reports: - - Denies paternal medical history including cardiac history. Review of Systems All systems negative except as indicated General: Denies: Chills, Fever, Sweats Eyes: Denies: Visual changes - bilaterally, Diplopia ENT: Denies: Rhinorrhea, Sore throat Cardiovascular: Denies: Chest pain, Palpitations Respiratory: Denies: Dyspnea, Cough, Dyspnea on exertion Gastrointestinal: Denies: Abdominal pain, Nausea, Vomiting, Diarrhea Genitourinary: Denies: Dysuria, Hematuria, Frequency Musculoskeletal: Denies: Back pain, Extremity Pain Skin: Reports: - - Ulcerations to the penis. Denies: Rash, Wounds Neurological: Denies: Headache, Weakness, Numbness Physical Exam Vital Signs/Narrative: Vital Signs Temp Pulse Resp BP Pulse Ox 05/05/20 16:14 97.2 F L 83 15 159/108 H 100 Inital Vital Signs reviewed: Yes General: Well nourished, Well developed Head: Normocephalic, Atraumatic Eyes: Perrl, EOMI ENT: Moist mucous membranes Neck: Supple, Nontender Cardiovascular: Regular rate, Regular rhythm Respiratory: No distress, CTA bilaterally Abdomen: Soft, Nontender, Nondistended : - - 2 ulcerations sub 0.5cm each on right shaft of penis at distal end. Small macular lesions that are erythematous. Back: Negative for: Nontender, CVA tenderness Extremities: Nontender Neurological: Alert, Oriented x3 Psychological: Normal affect, Normal Mood Diagnostic/Tx/Re-eval - Medical Decision Making Patient presents to the ED for concern for STD. He did have unprotected intercourse. Will check gonorrhea and chlamydia but will treat him prophylactically with azithromycin and Rocephin. His physical exam is consistent with herpes as he has painful ulcerations present. We will start him on valacyclovir. We will have him follow-up with his PCP. Warning signs and symptoms for which to return to ED are reviewed. He understands and is agreeable this plan. Will discharge home in stable condition. All questions answered. ED Disposition - Plan for ED Patient: Disposition: Home or Assisted Living Diagnosis: Herpes genitalia Instructions: ED Herpes Simplex Virus Type 2 Prescriptions: Valacyclovir HCl [Valacyclovir] 1,000 mg PO BID 7 Days #14 tab Transmission Status: Received by [facility] Referrals: Jorge Acevedo DO [STAFF PHYSICIAN] - 1 Week if not improving
[2020-05-05 16:53] LABS: Bacteria 0 SEEN /hpf (None Seen); Mucous, Urine 0 SEEN /hpf (<or=2+); Red Blood Cells-Urine 0 SEEN /hpf (0-5); Squamous Epithelial Cells - UA 0 SEEN /hpf (0-5); White Blood Cells 0 SEEN /hpf (0-5)
[2020-05-05 16:57] LABS: Color, Urine Yellow (Yellow); Glucose, Dipstick Normal (Normal); Ketone-Dipstick Negative (Negative); Leukocyte Esterase-Dipstick Negative /ul (Negative); Nitrite-Dipstick Negative (Negative); Occult Blood-Urine Negative /ul (Negative); Protein-Dipstick Negative (Negative); Urine Bilirubin Dipstick Negative (Negative); Urine Clarity Clear (Clear); Urine Urobilinogen Normal (Normal)
[2020-05-05] MEDS: Azithromycin 250 MG Tablet 1000 MG PO (17:29)
[2020-05-05] MEDS: Ceftriaxone 500 MG Vial 250 MG IM (17:30)
[2020-05-05 17:51] VITALS: BP 151/70; PULSE 80; O2SAT 99
[2020-05-05 19:24] LABS: Chlamydia Trachomatis by PCR Negative (Negative); Neisserai gonorrhoeae by PCR Negative (Negative); Probe Check PASS; Sample Adequacy Control PASS; Specimen Processing Control PASS
== END 2020-05-05 17:55 | disposition home or self-care (01) ==
LOC: ED 17:01
PROVIDERS: Emergency Provider Emergency Medicine
DX: A60.00 Herpesviral infection of urogenital system, unspecified (principal); I10 Essential (primary) hypertension; F17.200 Nicotine dependence, unspecified, uncomplicated; Z82.49 Family history of ischemic heart disease and other diseases of the circulatory system; Z88.5 Allergy status to narcotic agent; Z88.8 Allergy status to other drugs, medicaments and biological substances
CPT/HCPCS: 81001; 87491; 87591; 96372; 99283

== ENCOUNTER 2024-11-12 14:46 | Emergency (ER) | payer SELFPAY ==
[2024-11-12 14:47] VITALS: BP 196/103; PULSE 103; RESP 19; TEMP 36.6; O2SAT 98; BMI 34.2
--- NOTE | 2024-11-12 15:40 | RAD_ITS ---
PROCEDURE: CHEST PA AND LATERAL 11/12/2024 REASON FOR EXAM: HTN TECHNIQUE: Frontal and lateral views of the chest. COMPARISON: None available. RAD/Chest PA and Lateral IMPRESSION: Pleural thickening and blunting is seen of the right costophrenic angle. Canno t exclude a small right pleural effusion. No left pleural effusion is seen. No pneumothorax is noted. The cardiomediastinal silhouette is within the normal range. No evidence of ca rdiomegaly. No evidence of pulmonary edema. No focal infiltrate is seen. No acute osseous change is evident. Reading Location: [place] [id number]
[2024-11-12 16:19] VITALS: BP 187/106
[2024-11-12 16:22] LABS: Absolute Lymphocyte Count 3.06 X10^3/uL (0.83-4.51); Absolute Neutrophil Count 8.4 X10^3/uL (2.0-7.7); Basophil# 0.05 X10^3/uL; Basophil% 0.4 % (0-1); Eosinophil# 0.04 X10^3/uL; Eosinophils% 0.3 % (0-5); Hematocrit 48.8 % (40-54); Hemoglobin 16.9 g/dL (13.0-16.5); Lymphocyte # 3.06 X10^3/ul (0.83-4.51); Mean Corp Hgb Conc 34.6 g/dL (32-36); Mean Corpuscular Hgb 29.8 pg (27.0-32.0); Mean Corpuscular Volume 86.1 fL (80-94); Mean Platelet Vol. 8.8 fl (6.2-12.0); Monocyte# 0.69 X10^3/uL; Monocyte% 5.6 % (0-10); NRBC Flagged by Analyzer 0 % (0-5); Neutrophil # 8.35 X10^3/uL (2.7-7.7); Neutrophil % 68.2 % (47-70); Platelet Count 406 K/mm3 (150-450); RBC Distribution Width CV 13.2 % (11.6-14.6); RBC Distribution Width SD 40.7 fl (35.1-43.9); Red Blood Count 5.67 M/mm3 (4.6-6.2); White Blood Count 12.3 K/mm3 (4.4-11.0)
[2024-11-12 16:31] LABS: Anion Gap 14 (5-15); BUN 11 mg/dL (4-19); BUN/Creat Ratio 14.3 RATIO (10-20); Calcium,Total 9.9 mg/dL (7.6-11.0); Carbon Dioxide 24.2 mmol/L (21.0-32.0); Chloride 100 mmol/L (98-108); Creatinine, Serum 0.79 mg/dL (0.70-1.20); EST Glomerular Filtration Rate 108 (>60); Estimated Creatinine Clearance 146.22 ml/min (50-250); Glucose 118 mg/dL (70-99); Potassium 3.5 mmol/L (3.3-5.1); Sodium Level 138 mmol/L (133-145)
--- NOTE | 2024-11-12 18:17 | ED.RN ---
PATIENT WAS CALLED TO GO BACK TO A ROOM, UNABLE TO FIND PATIENT. CHECKED TRIAGE AREA, BATHROOM AND OUTSIDE. PATIENT DID HAVE AN IV CHARTED, UNKNOWN IF HE LEFT WITH IT. SECURITY INFORMED AND CALLING PATIENT/DISPATCH
== END 2024-11-12 18:03 | disposition left against medical advice (07) ==
LOC: ED 18:24
DX: Z53.21 Procedure and treatment not carried out due to patient leaving prior to being seen by health care provider (principal)
CPT/HCPCS: 71046; 80048; 85025; 93005

== ENCOUNTER 2024-11-14 03:31 | Emergency (ER) | payer MEDICAID, SELFPAY ==
[2024-11-14 03:33] VITALS: BP 191/109; PULSE 78; RESP 16; TEMP 37.2; O2SAT 99; BMI 34.2
--- NOTE | 2024-11-14 04:10 | EKG12_ITS ---
Test Reason : DYSRHYTHMIA Blood Pressure : */* mmHG Vent. Rate : 66 BPM Atrial Rate : 66 BPM P-R Int : 122 ms QRS Dur : 88 ms QT Int : 472 ms P-R-T Axes : 23 36 269 degrees QTcB Int : 494 ms Normal sinus rhythm ST & T wave abnormality, consider inferior ischemia ST & T wave abnormality, consider anterolateral ischemia Prolonged QT Abnormal ECG Confirmed by Enmanuel Martinez ([id number]), continuity editor TERESSA AGUSTIN ([id number]) on 11/15/2024 10:07:12 AM Referred By: Confirmed By: Enmanuel Martinez
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
[2024-11-14 04:43] LABS: Absolute Lymphocyte Count 3.84 X10^3/uL (0.83-4.51); Absolute Neutrophil Count 7.9 X10^3/uL (2.0-7.7); Basophil# 0.08 X10^3/uL; Basophil% 0.6 % (0-1); Eosinophil# 0.09 X10^3/uL; Eosinophils% 0.7 % (0-5); Hematocrit 44.2 % (40-54); Hemoglobin 15.4 g/dL (13.0-16.5); Lymphocyte # 3.84 X10^3/ul (0.83-4.51); Lymphocyte % 29.6 % (19-41); Mean Corp Hgb Conc 34.8 g/dL (32-36); Mean Corpuscular Hgb 30.2 pg (27.0-32.0); Mean Corpuscular Volume 86.7 fL (80-94); Mean Platelet Vol. 8.6 fl (6.2-12.0); Monocyte# 0.93 X10^3/uL; Monocyte% 7.2 % (0-10); NRBC Flagged by Analyzer 0 % (0-5); Neutrophil # 7.91 X10^3/uL (2.7-7.7); Neutrophil % 60.8 % (47-70); Platelet Count 395 K/mm3 (150-450); RBC Distribution Width CV 13.2 % (11.6-14.6)
[2024-11-14] MEDS: 0.9% Normal Saline (1000mL) 1,000 ML 999 ML IV (04:53)
[2024-11-14 05:32] VITALS: BP 160/98; PULSE 56; RESP 18; O2SAT 97
[2024-11-14 05:45] LABS: AST(SGOT) 58 U/L (<=37); Alanine Aminotransfer ALT/SGPT 27 U/L (<=46); Albumin, Serum 4.2 g/dL (3.5-5.0); Alkaline Phosphatase 97 U/L (40-129); Anion Gap 15 (5-15); BUN 18 mg/dL (4-19); Calcium,Total 9.7 mg/dL (7.6-11.0); Carbon Dioxide 18.5 mmol/L (21.0-32.0); Chloride 100 mmol/L (98-108); Creatinine, Serum 1.08 mg/dL (0.70-1.20); EST Glomerular Filtration Rate 84 (>60); Estimated Creatinine Clearance 106.94 ml/min (50-250); Globulin 4.1 g/dL (2.2-4.2); Glucose 104 mg/dL (70-99); Potassium 4.4 mmol/L (3.3-5.1); Protein, Total 8.3 g/dL (5.9-8.4); Sodium Level 134 mmol/L (133-145); Total Bilirubin 0.46 mg/dL (0.00-1.30); Troponin T High Sensitivity 30 ng/L (<=22)
[2024-11-14 06:05] LABS: Red Blood Cells-Urine 0 SEEN /hpf (0-5)
[2024-11-14] MEDS: amLODIPine 5 MG Tablet PO (06:10)
[2024-11-14] MEDS: Lisinopril 20 MG Tablet PO (06:11)
[2024-11-14 06:27] LABS: Color, Urine Amber (Yellow); Glucose, Dipstick Normal (Normal); Ketone-Dipstick 5 mg/dl (Negative); Leukocyte Esterase-Dipstick Negative /ul (Negative); Nitrite-Dipstick Negative (Negative); Occult Blood-Urine Negative /ul (Negative); Protein-Dipstick 30 mg/dl (Negative); Specific Gravity, Urine 1.025 (1.002-1.030); Urine Clarity Sl. Cloudy (Clear); Urine Urobilinogen 1 mg/dl (Normal)
[2024-11-14 06:32] LABS: Urine Bilirubin Dipstick 1 mg/dL (Negative)
[2024-11-14 06:43] LABS: Bacteria 2+ /hpf (None Seen); Hyaline Cast 5-10 SEEN /lpf (0-5); Mucous, Urine 3+ /hpf (<or=2+); Squamous Epithelial Cells - UA 0-5 SEEN /hpf (0-5); White Blood Cells 0-5 SEEN /hpf (0-5)
[2024-11-14 07:08] VITALS: BP 152/102; PULSE 78; RESP 17; O2SAT 94
[2024-11-14 07:12] LABS: Troponin T High Sens 2 HR 29 ng/L (<=22)
[2024-11-14 07:21] VITALS: BP 155/86; PULSE 80; RESP 20; TEMP 36.6; O2SAT 97
== END 2024-11-14 07:23 | disposition home or self-care (01) ==
PROVIDERS: Emergency Provider Emergency Medicine; Visit Provider Emergency Medicine
DX: I10 Essential (primary) hypertension (principal); F19.19 Other psychoactive substance abuse with unspecified psychoactive substance-induced disorder; R19.7 Diarrhea, unspecified; F17.210 Nicotine dependence, cigarettes, uncomplicated; E66.9 Obesity, unspecified
CPT/HCPCS: 80053; 81001; 84484; 85025; 93005; 99284; A4216